=== PATIENT | male | born 1965 | race Two or more races ===

== ENCOUNTER 2018-02-21 09:04 | Inpatient (IN) | payer OTHER ==
[2018-02-21 09:36] VITALS: BMI 39.0
--- NOTE | 2018-02-21 09:42 | HP ---
CIWA Score Nausea/Vomitin Muscle Tremors: 2 Anxiety: 2 Agitation: 2 Paroxysmal Sweats: 1-Minimal Palms Moist Orientation: 0-Oriented Tacttile Disturbances: 1-Very Mild Itch/Numbness Auditory Disturbances: 1-Very Mild Visual Disturbances: 0-None Headache: 2-Mild CIWA-Ar Total Score: 13 - Admission Criteria OASAS Guidelines: Admission for Medically Managed Detox: Requires at least one of the followin. CIWA greater than 12 2. Seizures within the past 24 hours 3. Delirium tremens within the past 24 hours 4. Hallucinations within the past 24 hours 5. Acute intervention needed for co occurring medical disorder 6. Acute intervention needed for co occurring psychiatric disorder 7. Severe withdrawal that cannot be handled at a lower level of care (continued vomiting, continued diarrhea, abnormal vital signs) requiring intravenous medication and/or fluids 8. Patient presents the following: CIWA greater than 12 Admission Criteria Met: Admission criteria met Admission ROS [facility] - HPI Chief Complaint: i need help to stop drinking alcohol Allergies/Adverse Reactions: Allergies Allergy/AdvReac Type Severity Reaction Status Date / Time No Known Allergies Allergy Verified 02/21/18 09:55 History of Present Illness: this 52 years old male with alcohol dependence,seeking detox,had syncope seen at [facility],refer for detox, last detox 08/08/15 to 08/12/17 [facility] syncope alcohol related history of hypertension hepatitis c treated anxiety,depression,insomnia,ptsd longest period of sobriety 2 years - Ebola screening Have you traveled outside of the country in the last 21 days: No (N) Have you had contact with anyone from an Ebola affected area: No Have you been sick,other than usual withdrawal symptoms: No Do you have a fever: No - Review of Systems Constitutional: Loss of Appetite, Malaise, Night Sweats, Changes in sleep, Weakness EENT: reports: Nose Congestion Respiratory: reports: No Symptoms reported Cardiac: reports: No Symptoms Reported GI: reports: Nausea, Vomiting, Abdominal cramping : reports: No Symptoms Reported Musculoskeletal: reports: Back Pain, Muscle Pain Integumentary: reports: Dryness Neuro: reports: Headache, Tremors Endocrine: reports: No Symptoms Reported Hematology: reports: No Symptoms Reported Psychiatric: reports: No Sypmtoms Reported, Judgement Intact, Mood/Affect Appropiate, Orientated x3, Anxious, Depressed, other (ptsd) Patient History - Patient Medical History Hx Anemia: No Hx Asthma: No Hx Chronic Obstructive Pulmonary Disease (COPD): No Hx Cancer: No Hx Cardiac Disorders: No Hx Congestive Heart Failure: No Hx Hypertension: Yes (onmedication) Hx Hypercholesterolemia: No Hx Pacemaker: No HX Cerebrovascular Accident: No Hx Seizures: No Hx Dementia: No Hx Diabetes: No Hx Gastrointestinal Disorders: No Hx Liver Disease: No Hx Genitourinary Disorders: No Hx Sexually Transmitted Disorders: No Hx Renal Disease (ESRD): No Hx Thyroid Disease: No Hx Human Immunodeficiency Virus (HIV): No (2017 last negative) Hx Hepatitis C: Yes (recently treated, cleared virus) Hx Depression: No Hx Suicide Attempt: No Hx Bipolar Disorder: Yes (on zoloft ) Hx Schizophrenia: No Other Medical History: no suicidal,no homicidal - Patient Surgical History Past Surgical History: Yes Hx Neurologic Surgery: No Hx Cataract Extraction: No Hx Cardiac Surgery: No Hx Lung Surgery: No Hx Breast Surgery: No Hx Breast Biopsy: No Hx Abdominal Surgery: Yes (umbilical hernia 2006, rt inguinal hernia repairs 2012) Hx Appendectomy: No Hx Cholecystectomy: No Hx Genitourinary Surgery: No Hx Orthopedic Surgery: Yes (rt wrist tendon and vein repair in 1986) Hx Hysterectomy: No Other Surgical History: arthroscopic surgery left shoulder 2016 Anesthesia Reaction: No - PPD History Previous Implant?: Yes Documented Results: Positive w/proof Date: 06/30/15 Results: 0 mm PPD to be Administered?: Yes - Smoking Cessation Smoking history: Current every day smoker Have you smoked in the past 12 months: Yes Aproximately how many cigarettes per day: 7 Cigars Per Day: 0 Hx Chewing Tobacco Use: No Initiated information on smoking cessation: Yes 'Breaking Loose' booklet given: 02/21/18 - Substance & Tx. History Hx Alcohol Use: Yes Hx Substance Use: Yes Substance Use Type: Alcohol, Marijuana Hx Substance Use Treatment: Yes ([facility] 08/08/15to 08/13/15 completed) - Substances Abused Alcohol Route: Oral Frequency: Daily Amount used: 1 gallon of vodka Age of first use: 7 Date of Last Use: 02/20/18 Marijuana/Hashish Route: Smoking Frequency: 1-3 times last 30 days Amount used: 1 joint Age of first use: 10 Date of Last Use: 02/14/18 Family Disease History - Family Disease History Family Disease History: Diabetes: Mother (), Heart Disease: Mother Admission Physical Exam [facility] - Vital Signs Vital Signs: Vital Signs - 24 hr 02/21/18 09:34 Temperature 98.7 F Pulse Rate 78 Respiratory 18 Rate Blood Pressure 140/86 - Physical General Appearance: Yes: Moderate Distress, Irritable, Sweating, Anxious HEENTM: Yes: Normal ENT Inspection, DWAY[place], Pharynx Normal Respiratory: Yes: Lungs Clear, Normal Breath Sounds, No Respiratory Distress Neck: Yes: Within Normal Limits, Supple, Trachea in good position Breast: Yes: Within Normal Limits Cardiology: Yes: Within Normal Limits, Regular Rhythm, Regular Rate, S1, S2 Abdominal: Yes: Within Normal Limits, Normal Bowel Sounds, Non Tender, Flat, Soft, Surgical Scar Genitourinary: Yes: Within Normal Limits Back: Yes: Muscle Spasm Musculoskeletal: Yes: Back pain, Muscle Pain Extremities: Yes: Normal Range of Motion, Tremors, Other (scar inright wrist volar aspect) Neurological: Yes: clockmaker II-XII NML intact, Fully Oriented, Alert, Motor Strength 5/5 Integumentary: Yes: Dry Lymphatic: Yes: Within Normal Limits - Diagnostic (1) Alcohol dependence with uncomplicated withdrawal Current Visit: No Status: Acute (2) Cannabis dependence, uncomplicated Current Visit: No Status: Chronic (3) HTN (hypertension) Current Visit: No Status: Chronic Qualifiers: Hypertension type: essential hypertension Qualified Code(s): I10 - Essential (primary) hypertension (4) Nicotine dependence Current Visit: No Status: Chronic Qualifiers: Nicotine product type: cigarettes Substance use status: unspecified nicotine-induced disorder Qualified Code(s): F17.219 - Nicotine dependence, cigarettes, with unspecified nicotine-induced disorders (5) Obesity Current Visit: No Status: Chronic Qualifiers: Obesity type: due to excess calories (6) Syncope Current Visit: Yes Status: Acute (7) Insomnia secondary to depression with anxiety Current Visit: Yes Status: Acute (8) History of umbilical hernia repair Current Visit: Yes Status: Acute (9) Hx of right inguinal hernia repair Current Visit: Yes Status: Acute (10) History of repair of left rotator cuff Current Visit: Yes Status: Acute (11) Laceration of wrist, right, with tendon involvement Current Visit: Yes Status: Resolved Cleared for Admission [facility] - Detox or Rehab [facility] Level of Care: Medically Managed Detox Regimen/Protocol: Librium [facility] Breath Alcohol Content Breath Alcohol Content: 0.080 Urine Drug Screen - Results Drug Screen Negative: No Urine Drug Screen Results: THC-Marijuana
[2018-02-21] MEDS ORDERED: hydrOXYzine PAMOATE 50 MG CAPSULE (FP) PO PRN (10:03)
[2018-02-21] MEDS ORDERED: MAG HYDROX/AL HYDROX/SIMETH 30 ML UNIT-DOSE CUP PO PRN (10:03)
[2018-02-21] MEDS ORDERED: MAGNESIUM HYDROX 2400MG/30ML ORAL SUSPENSION 30 ML CUP PO PRN (10:03)
[2018-02-21] MEDS ORDERED: IBUPROFEN 400 MG TABLET (FP) PO PRN (10:03)
[2018-02-21] MEDS ORDERED: MENTHOL/PHENOL 1 EACH UD MM PRN (10:03)
[2018-02-21] MEDS ORDERED: MAGNESIUM CITRATE 300 ML BOTTLE PO PRN (10:03)
[2018-02-21] MEDS ORDERED: LOPERAMIDE HCL 2 MG CAPSULE PO PRN (10:03)
[2018-02-21] MEDS ORDERED: ONDANSETRON *ODT* 4 MG TABLET SL PRN (10:05)
[2018-02-21] MEDS: chlordiazePOXIDE HCL 25 MG CAPSULE PO SCH ×3 (11:16→22:45)
[2018-02-21] MEDS: HYDROCHLOROTHIAZIDE 12.5 MG CAPSULE (FP) PO SCH (11:16)
[2018-02-21] MEDS: NICOTINE 21 MG/24 HOURS TOPICAL PATCH TD SCH (11:16)
[2018-02-21] MEDS: ACETAMINOPHEN 325 MG TABLET (FP) PO PRN (11:18)
[2018-02-21] MEDS: MELATONIN 5 MG TABLETS PO PRN (22:45)
[2018-02-21] MEDS: THIAMINE HCL 100 MG TABLET (FP) PO SCH (22:45)
[2018-02-22 01:47] LABS: URINE APPEARANCE TURBID; URINE BILIRUBIN NEGATIVE (<2.0 mg/dL); URINE COLOR YELLOW; URINE GLUCOSE (UA) NEGATIVE (NEGATIVE); URINE KETONE 1+ (NEGATIVE); URINE LEUK ESTERASE NEGATIVE (NEGATIVE); URINE NITRITE NEGATIVE (NEGATIVE); URINE PROTEIN 1+ (NEGATIVE); URINE UROBILINOGEN NEGATIVE mg/dL (0.2-1.0)
[2018-02-22 02:20] LABS: URINE BACTERIA FEW /hpf (NONE SEEN); URINE MUCUS RARE
[2018-02-22] MEDS: chlordiazePOXIDE HCL 25 MG CAPSULE PO SCH ×4 (06:09→22:47)
[2018-02-22 10:09] LABS: HEMOGLOBIN 14.2 GM/dL (11.7-16.9); MCH 30.9 pg (25.7-33.7); MCHC 35.6 g/dl (32.0-35.9); MEAN PLT VOLUME 8.1 fl (7.5-11.1); PLATELET COUNT 240 K/MM3 (134-434); RBC 4.59 M/mm3 (4.00-5.60); RDW 16.3 % (11.9-15.9); WHITE BLOOD COUNT 5.9 K/mm3 (4.0-10.0)
[2018-02-22 10:14] LABS: ALBUMIN 3.3 g/dl (3.4-5.0); ALK PHOS 101 U/L (45-117); ANION GAP 9 MMOL/L (8-16); BILIRUBIN,TOTAL 0.4 mg/dL (0.2-1); BLOOD UREA NITROGEN 15 mg/dL (7-18); CALCIUM 7.9 mg/dL (8.5-10.1); CHLORIDE 101 mmol/L (98-107); CO2 28 mmol/L (21-32); GLUCOSE,RANDOM 140 mg/dL (74-106); POTASSIUM 3.6 mmol/L (3.5-5.1); SGOT/AST 19 U/L (15-37); SGPT/ALT 27 U/L (13-61); SODIUM 138 mmol/L (136-145); TOT PROT 6.3 g/dl (6.4-8.2)
[2018-02-22] MEDS: NICOTINE 21 MG/24 HOURS TOPICAL PATCH TD SCH (10:22)
[2018-02-22] MEDS: HYDROCHLOROTHIAZIDE 12.5 MG CAPSULE (FP) PO SCH (10:23)
[2018-02-22] MEDS: PRENATAL VITAMINS W/ FOLIC ACID TABLET (FP) PO SCH (10:23)
[2018-02-22] MEDS: IBUPROFEN 400 MG TABLET (FP) PO PRN (10:28)
[2018-02-22] MEDS: P-EPHED 60MG/TRIPROLIDI 2.5MG TABLET PO PRN (10:29)
[2018-02-22] MEDS: guaiFENesin/D-METHORPHAN HB 10 ML UNIT-DOSE CUPS PO PRN (10:30)
[2018-02-22] MEDS: LIDOCAINE 5% TOPICAL PATCH TP SCH (10:30)
--- NOTE | 2018-02-22 11:23 | PN ---
S CIWA - CIWA Score Nausea/Vomitin-No Nausea/No Vomiting Muscle Tremors: 4-Moderate,w/Arms Extend Anxiety: 3 Agitation: 4-Moderately Restless Paroxysmal Sweats: 3 Orientation: 0-Oriented Tacttile Disturbances: 0-None Auditory Disturbances: 0-None Visual Disturbances: 0-None Headache: 0-None Present CIWA-Ar Total Score: 14 BHS Progress Note (SOAP) Subjective: agitation sweats shakes interrupted sleep rib pain. Objective: 02/22/18 11:22 Vital Signs Temperature 98.2 F 02/22/18 09:12 Pulse Rate 67 02/22/18 09:12 Respiratory Rate 18 02/22/18 09:12 Blood Pressure 147/99 02/22/18 09:12 O2 Sat by Pulse Oximetry (%) Laboratory Tests 02/21/18 02/22/18 02/22/18 14:50 07:00 07:00 WBC 5.9 RBC 4.59 Hgb 14.2 Hct 40.0 MCV 87.0 MCH 30.9 D MCHC 35.6 RDW 16.3 H Plt Count 240 MPV 8.1 Sodium 138 Potassium 3.6 Chloride 101 Carbon Dioxide 28 Anion Gap 9 BUN 15 Creatinine 1.0 Creat Clearance w eGFR > 60 Random Glucose 140 H Calcium 7.9 L Total Bilirubin 0.4 AST 19 ALT 27 Alkaline Phosphatase 101 Total Protein 6.3 L Albumin 3.3 L Urine Color Yellow Urine Appearance Turbid Urine pH 5.0 Ur Specific [place] 1.021 Urine Protein 1+ H Urine Glucose (UA) Negative Urine Ketones 1+ H Urine Blood 1+ H Urine Nitrite Negative Urine Bilirubin Negative Urine Urobilinogen Negative Ur Leukocyte Esterase Negative Urine WBC (Auto) 26 Urine RBC (Auto) None Urine Bacteria Few Urine Mucus Rare aaox3 ambulating no acute distress Assessment: 02/22/18 11:23 withdrawal sx Plan: continue detox increase fluids motrin 800mg prn lidocaine patch ordered
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
[2018-02-22] MEDS: chlordiazePOXIDE HCL 25 MG CAPSULE PO PRN (15:51)
[2018-02-22] MEDS: THIAMINE HCL 100 MG TABLET (FP) PO SCH (22:46)
[2018-02-22] MEDS: LIDOCAINE PATCH REMOVAL MC SCH (22:47)
[2018-02-22] MEDS: MELATONIN 5 MG TABLETS PO PRN (22:48)
[2018-02-23] MEDS: chlordiazePOXIDE HCL 25 MG CAPSULE PO SCH (05:16)
[2018-02-23] MEDS: HYDROCHLOROTHIAZIDE 12.5 MG CAPSULE (FP) PO SCH (10:12)
[2018-02-23] MEDS: SERTRALINE HCL 50 MG TABLET (FP) PO SCH (10:12)
[2018-02-23] MEDS: PRENATAL VITAMINS W/ FOLIC ACID TABLET (FP) PO SCH (10:12)
[2018-02-23] MEDS: chlordiazePOXIDE 5 MG CAPSULE PO SCH ×3 (10:12→22:14)
[2018-02-23] MEDS: LIDOCAINE 5% TOPICAL PATCH TP SCH (10:13)
[2018-02-23] MEDS: NICOTINE 21 MG/24 HOURS TOPICAL PATCH TD SCH (10:14)
--- NOTE | 2018-02-23 11:14 | PN ---
[facility] CIWA - CIWA Score Nausea/Vomitin-No Nausea/No Vomiting Muscle Tremors: 3 Anxiety: 3 Agitation: 3 Paroxysmal Sweats: 3 Orientation: 0-Oriented Tacttile Disturbances: 0-None Auditory Disturbances: 0-None Visual Disturbances: 0-None Headache: 0-None Present CIWA-Ar Total Score: 12 S Progress Note (SOAP) Subjective: cough sweats chills at night Objective: 02/23/18 11:21 Vital Signs Temperature 97.5 F L 02/23/18 09:30 Pulse Rate 56 L 02/23/18 09:30 Respiratory Rate 16 02/23/18 09:30 Blood Pressure 145/75 02/23/18 09:30 O2 Sat by Pulse Oximetry (%) Laboratory Tests 02/21/18 02/22/18 02/22/18 14:50 07:00 07:00 WBC 5.9 RBC 4.59 Hgb 14.2 Hct 40.0 MCV 87.0 MCH 30.9 D MCHC 35.6 RDW 16.3 H Plt Count 240 MPV 8.1 Sodium 138 Potassium 3.6 Chloride 101 Carbon Dioxide 28 Anion Gap 9 BUN 15 Creatinine 1.0 Creat Clearance w eGFR > 60 Random Glucose 140 H Calcium 7.9 L Total Bilirubin 0.4 AST 19 ALT 27 Alkaline Phosphatase 101 Total Protein 6.3 L Albumin 3.3 L Urine Color Yellow Urine Appearance Turbid Urine pH 5.0 Ur Specific [place] 1.021 Urine Protein 1+ H Urine Glucose (UA) Negative Urine Ketones 1+ H Urine Blood 1+ H Urine Nitrite Negative Urine Bilirubin Negative Urine Urobilinogen Negative Ur Leukocyte Esterase Negative Urine WBC (Auto) 26 Urine RBC (Auto) None Urine Bacteria Few Urine Mucus Rare RPR Titer HIV 1&2 Antibody Screen HIV P24 Antigen 02/22/18 02/22/18 07:00 07:00 WBC RBC Hgb Hct MCV MCH MCHC RDW Plt Count MPV Sodium Potassium Chloride Carbon Dioxide Anion Gap BUN Creatinine Creat Clearance w eGFR Random Glucose Calcium Total Bilirubin AST ALT Alkaline Phosphatase Total Protein Albumin Urine Color Urine Appearance Urine pH Ur Specific [place] Urine Protein Urine Glucose (UA) Urine Ketones Urine Blood Urine Nitrite Urine Bilirubin Urine Urobilinogen Ur Leukocyte Esterase Urine WBC (Auto) Urine RBC (Auto) Urine Bacteria Urine Mucus RPR Titer Nonreactive HIV 1&2 Antibody Screen Negative HIV P24 Antigen Negative aaox3 ambulating no acute distress Assessment: 02/23/18 11:21 withdrawal sx Plan: continue detox increase fluids robitussin prn
[2018-02-23] MEDS: IBUPROFEN 400 MG TABLET (FP) PO PRN (14:53)
[2018-02-23] MEDS: chlordiazePOXIDE HCL 25 MG CAPSULE PO PRN (14:54)
[2018-02-23] MEDS: P-EPHED 60MG/TRIPROLIDI 2.5MG TABLET PO PRN (17:17)
[2018-02-23] MEDS: THIAMINE HCL 100 MG TABLET (FP) PO SCH (22:14)
[2018-02-23] MEDS: MELATONIN 5 MG TABLETS PO PRN (22:14)
[2018-02-23] MEDS: LIDOCAINE PATCH REMOVAL MC SCH (22:15)
[2018-02-23] MEDS: guaiFENesin/D-METHORPHAN HB 10 ML UNIT-DOSE CUPS PO PRN (22:16)
[2018-02-24] MEDS: chlordiazePOXIDE 5 MG CAPSULE PO SCH (05:25)
--- NOTE | 2018-02-24 09:28 | PN ---
[facility] Progress Note (SOAP) Subjective: feeling better long history of hypertension encourage weigh loss discuss negative consequences of alcohol misuse Objective: 02/24/18 09:31 Vital Signs Temperature 97.9 F 02/24/18 09:27 Pulse Rate 56 L 02/24/18 09:27 Respiratory Rate 16 02/24/18 09:27 Blood Pressure 150/84 02/24/18 09:27 O2 Sat by Pulse Oximetry (%) Laboratory Last Values WBC 5.9 K/mm3 (4.0-10.0) 02/22/18 07:00 RBC 4.59 M/mm3 (4.00-5.60) 02/22/18 07:00 Hgb 14.2 GM/dL (11.7-16.9) 02/22/18 07:00 Hct 40.0 % (35.4-49) 02/22/18 07:00 MCV 87.0 fl (80-96) 02/22/18 07:00 MCH 30.9 pg (25.7-33.7) D 02/22/18 07:00 MCHC 35.6 g/dl (32.0-35.9) 02/22/18 07:00 RDW 16.3 % (11.9-15.9) H 02/22/18 07:00 Plt Count 240 K/MM3 (134-434) 02/22/18 07:00 MPV 8.1 fl (7.5-11.1) 02/22/18 07:00 Sodium 138 mmol/L (136-145) 02/22/18 07:00 Potassium 3.6 mmol/L (3.5-5.1) 02/22/18 07:00 Chloride 101 mmol/L (98-107) 02/22/18 07:00 Carbon Dioxide 28 mmol/L (21-32) 02/22/18 07:00 Anion Gap 9 MMOL/L (8-16) 02/22/18 07:00 BUN 15 mg/dL (7-18) 02/22/18 07:00 Creatinine 1.0 mg/dL (0.55-1.3) 02/22/18 07:00 Creat Clearance w eGFR > 60 (>60) 02/22/18 07:00 Random Glucose 140 mg/dL (74-106) H 02/22/18 07:00 Calcium 7.9 mg/dL (8.5-10.1) L 02/22/18 07:00 Total Bilirubin 0.4 mg/dL (0.2-1) 02/22/18 07:00 AST 19 U/L (15-37) 02/22/18 07:00 ALT 27 U/L (13-61) 02/22/18 07:00 Alkaline Phosphatase 101 U/L (45-117) 02/22/18 07:00 Total Protein 6.3 g/dl (6.4-8.2) L 02/22/18 07:00 Albumin 3.3 g/dl (3.4-5.0) L 02/22/18 07:00 Urine Color Yellow 02/21/18 14:50 Urine Appearance Turbid 02/21/18 14:50 Urine pH 5.0 (5.0-8.0) 02/21/18 14:50 Ur Specific [place] 1.021 (1.010-1.035) 02/21/18 14:50 Urine Protein 1+ (NEGATIVE) H 02/21/18 14:50 Urine Glucose (UA) Negative (NEGATIVE) 02/21/18 14:50 Urine Ketones 1+ (NEGATIVE) H 02/21/18 14:50 Urine Blood 1+ (NEGATIVE) H 02/21/18 14:50 Urine Nitrite Negative (NEGATIVE) 02/21/18 14:50 Urine Bilirubin Negative (<2.0 mg/dL) 02/21/18 14:50 Urine Urobilinogen Negative mg/dL (0.2-1.0) 02/21/18 14:50 Ur Leukocyte Esterase Negative (NEGATIVE) 02/21/18 14:50 Urine WBC (Auto) 26 /hpf (3-5) 02/21/18 14:50 Urine RBC (Auto) None /hpf (0-3) 02/21/18 14:50 Urine Bacteria Few /hpf (NONE SEEN) 02/21/18 14:50 Urine Mucus Rare 02/21/18 14:50 RPR Titer Nonreactive (NONREACTIVE) 02/22/18 07:00 HIV 1&2 Antibody Screen Negative 02/22/18 07:00 HIV P24 Antigen Negative 02/22/18 07:00 lab noted low Ca++ Assessment: 02/24/18 09:33 mild withdrawal sx 02/24/18 09:33 hypocalcemia Plan: medically supervised detox oscal supplement
[2018-02-24] MEDS: PRENATAL VITAMINS W/ FOLIC ACID TABLET (FP) PO SCH (10:11)
[2018-02-24] MEDS: chlordiazePOXIDE HCL 10 MG CAPSULE PO SCH ×3 (10:11→22:25)
[2018-02-24] MEDS: HYDROCHLOROTHIAZIDE 12.5 MG CAPSULE (FP) PO SCH (10:12)
[2018-02-24] MEDS: NICOTINE 21 MG/24 HOURS TOPICAL PATCH TD SCH (10:12)
[2018-02-24] MEDS: SERTRALINE HCL 50 MG TABLET (FP) PO SCH (10:12)
[2018-02-24] MEDS: LIDOCAINE 5% TOPICAL PATCH TP SCH (10:12)
[2018-02-24] MEDS: CALCIUM 250MG/VIT-D 125 UNITS 1 COMBO TABLET PO SCH ×2 (10:12→22:25)
[2018-02-24] MEDS: guaiFENesin/D-METHORPHAN HB 10 ML UNIT-DOSE CUPS PO PRN (14:57)
[2018-02-24] MEDS: ACETAMINOPHEN 325 MG TABLET (FP) PO PRN (17:26)
[2018-02-24] MEDS: THIAMINE HCL 100 MG TABLET (FP) PO SCH (22:24)
[2018-02-24] MEDS: MELATONIN 5 MG TABLETS PO PRN (22:26)
[2018-02-24] MEDS: LIDOCAINE PATCH REMOVAL MC SCH (22:26)
[2018-02-25] MEDS: chlordiazePOXIDE HCL 10 MG CAPSULE PO SCH (05:46)
--- NOTE | 2018-02-25 08:31 | DS ---
[facility] Detox Discharge Summary Admission Date: 02/21/18 - Physical Exam Results Vital Signs: Vital Signs Temperature 98.2 F 02/25/18 06:00 Pulse Rate 53 L 02/25/18 06:00 Respiratory Rate 20 02/25/18 06:00 Blood Pressure 146/76 02/25/18 06:00 O2 Sat by Pulse Oximetry (%) - Treatment Hospital Course: Responded well, Discharged Condition Good - Medication Discharge Medications: Ambulatory Orders Sertraline HCl [Zoloft -] 150 mg PO DAILY 08/08/15 Hydrochlorothiazide [Hctz -] 25 mg PO DAILY #15 cap 02/24/18 - Diagnosis (1) Alcohol dependence with uncomplicated withdrawal Current Visit: Yes Status: Chronic (2) History of repair of left rotator cuff Current Visit: No Status: Chronic (3) History of umbilical hernia repair Current Visit: Yes Status: Acute (4) Insomnia secondary to depression with anxiety Current Visit: Yes Status: Acute (5) Marijuana dependence Current Visit: Yes Status: Chronic (6) Substance induced mood disorder Current Visit: Yes Status: Acute (7) Syncope Current Visit: Yes Status: Acute (8) PTSD (post-traumatic stress disorder) Current Visit: Yes Status: Suspected (9) Cocaine dependence, uncomplicated Current Visit: Yes Status: Chronic (10) Drug-induced mood disorder Current Visit: No Status: Acute (11) Opioid dependence with withdrawal Current Visit: Yes Status: Chronic (12) Anxiety Current Visit: No Status: Chronic (13) Cannabis dependence, uncomplicated Current Visit: Yes Status: Chronic (14) Depression Current Visit: No Status: Chronic (15) GERD (gastroesophageal reflux disease) Current Visit: No Status: Chronic Qualifiers: Esophagitis presence: without esophagitis Qualified Code(s): K21.9 - Gastro -esophageal reflux disease without esophagitis (16) HTN (hypertension) Current Visit: No Status: Chronic Qualifiers: Hypertension type: essential hypertension Qualified Code(s): I10 - Essential (primary) hypertension (17) Nicotine dependence Current Visit: Yes Status: Chronic Qualifiers: Nicotine product type: cigarettes Substance use status: unspecified nicotine-induced disorder Qualified Code(s): F17.219 - Nicotine dependence, cigarettes, with unspecified nicotine-induced disorders (18) Obesity Current Visit: No Status: Chronic Qualifiers: Obesity type: due to excess calories - AMA Did Patient Leave Against Medical Advice: No (referred to rehab and/or outpatient)
[2018-02-25 09:07] VITALS: BP 124/69; PULSE 73; TEMP 98.1
== END 2018-02-25 09:15 | disposition home or self-care (01) | DRG 773 ==
LOC: YASAS 09:04 → Y6N 09:54
PROVIDERS: ADMIT Neuromusculoskeletal Medicine & OMM; ATTEND Neuromusculoskeletal Medicine & OMM
PROC: HZ2ZZZZ Detoxification Services for Substance Abuse Treatment (ICD-10-PCS; principal; 2018-02-21)
DX: F11.23 Opioid dependence with withdrawal (principal); F10.230 Alcohol dependence with withdrawal, uncomplicated; F14.20 Cocaine dependence, uncomplicated; F12.20 Cannabis dependence, uncomplicated; F17.210 Nicotine dependence, cigarettes, uncomplicated; F51.05 Insomnia due to other mental disorder; F19.24 Other psychoactive substance dependence with psychoactive substance-induced mood disorder; F43.10 Post-traumatic stress disorder, unspecified; F41.9 Anxiety disorder, unspecified; F32.9 Major depressive disorder, single episode, unspecified; I10 Essential (primary) hypertension; K21.9 Gastro-esophageal reflux disease without esophagitis; E83.51 Hypocalcemia; E66.09 Other obesity due to excess calories; Z68.39 Body mass index [BMI] 39.0-39.9, adult
CPT/HCPCS: 36415; 80053; 81003; 81015; 85027; 86593; 87389; Q0162

== ENCOUNTER 2018-09-09 08:52 | Inpatient (IN) | payer OTHER ==
[2018-09-09 10:11] VITALS: BMI 31.4
--- NOTE | 2018-09-09 11:23 | HP ---
COWS - Scale Resting Pulse: 0= [place] 80 or Below Sweatin= Chills/Flushing Restless Observation: 1= Difficult to Sit Still Pupil Size: 1= Pupils >than Normal Bone or Joint Aches: 2= Severe Diffuse Aches Runny Nose/ Eye Tearin= Runny Nose/Eyes GI Upset > 30mins: 2= Nausea/Diarrhea Tremor Observation: 2= Slight Tremor Visible Yawning Observation: 1= 1-2x During Session Anxiety or Irritability: 2=Irritable/Anxious Goose Flesh Skin: 0=Smooth Skin COWS Score: 14 CIWA Score - Admission Criteria OASAS Guidelines: Admission for Medically Managed Detox: Requires at least one of the followin. CIWA greater than 12 2. Seizures within the past 24 hours 3. Delirium tremens within the past 24 hours 4. Hallucinations within the past 24 hours 5. Acute intervention needed for co occurring medical disorder 6. Acute intervention needed for co occurring psychiatric disorder 7. Severe withdrawal that cannot be handled at a lower level of care (continued vomiting, continued diarrhea, abnormal vital signs) requiring intravenous medication and/or fluids 8. Admission ROS S - HPI Chief Complaint: i need help to stop using heroin and marijuana Allergies/Adverse Reactions: Allergies Allergy/AdvReac Type Severity Reaction Status Date / Time No Known Allergies Allergy Verified 09/09/18 09:57 History of Present Illness: this 52 years old male with heroin and marijuana dependence,seeking detox, withdrawal symptom, last detox C 02/21/18 to 02/25/18 history of drug overdose ,in coma,s/p tracheostomy hypertension,hypercholesterolemia hepatitis c treated seen in [place] last night ambulation with walker longest sobriety 4 and half years anxiety,depression,ptsd asthma Exam Limitations: No Limitations - Ebola screening Have you traveled outside of the country in the last 21 days: No (N) Have you had contact with anyone from an Ebola affected area: No Do you have a fever: No - Review of Systems Constitutional: Chills, Loss of Appetite, Malaise, Night Sweats, Changes in sleep, Weakness EENT: reports: Tearing, Nose Congestion Respiratory: reports: No Symptoms reported, Other (asthma) GI: reports: Diarrhea, Nausea, Abdominal cramping : reports: No Symptoms Reported Musculoskeletal: reports: Muscle Pain Integumentary: reports: Dryness Neuro: reports: Headache, Tremors Endocrine: reports: No Symptoms Reported Hematology: reports: No Symptoms Reported Psychiatric: reports: No Sypmtoms Reported, Judgement Intact, Mood/Affect Appropiate, Orientated x3, other (ptsd,anxiety,depressin) Patient History - Patient Medical History Hx Anemia: No Hx Asthma: No Hx Chronic Obstructive Pulmonary Disease (COPD): No Hx Cancer: No Hx Cardiac Disorders: No Hx Congestive Heart Failure: No Hx Hypertension: Yes (on medication) Hx Hypercholesterolemia: No Hx Pacemaker: No HX Cerebrovascular Accident: No Hx Seizures: No Hx Dementia: No Hx Diabetes: No Hx Gastrointestinal Disorders: No Hx Liver Disease: No Hx Genitourinary Disorders: No Hx Sexually Transmitted Disorders: No Hx Renal Disease (ESRD): No Hx Thyroid Disease: No Hx Human Immunodeficiency Virus (HIV): No (2017 last negative) Hx Hepatitis C: Yes (recently treated, cleared virus) Hx Depression: No Hx Suicide Attempt: No Hx Bipolar Disorder: Yes (on zoloft ) Hx Schizophrenia: No Other Medical History: no suicidal,no homicidal - Patient Surgical History Past Surgical History: Yes Hx Neurologic Surgery: No Hx Cataract Extraction: No Hx Cardiac Surgery: No Hx Lung Surgery: No Hx Breast Surgery: No Hx Breast Biopsy: No Hx Abdominal Surgery: Yes (umbilical hernia 2006, rt inguinal hernia repairs 2012) Hx Appendectomy: No Hx Cholecystectomy: No Hx Genitourinary Surgery: No Hx Orthopedic Surgery: Yes (rt wrist tendon and vein repair in 1986) Hx Hysterectomy: No Other Surgical History: arthroscopic surgery left shoulder 2016 Anesthesia Reaction: No - PPD History Previous Implant?: Yes Documented Results: Negative w/o proof Implanted On Prior R Admission?: Yes Date: 06/30/15 Results: 0 mm PPD to be Administered?: Yes - Smoking Cessation Smoking history: Current every day smoker Have you smoked in the past 12 months: Yes Aproximately how many cigarettes per day: 7 Cigars Per Day: 0 Hx Chewing Tobacco Use: No Initiated information on smoking cessation: Yes 'Breaking Loose' booklet given: 09/09/18 - Substances abused Heroin Substance route: Injection Frequency: Daily Amount used: $150-250 15 to 25 bags Age of first use: 25 Date of last use: 09/08/18 Marijuana/Hashish Substance route: Smoking Frequency: Daily Amount used: $40 Age of first use: 10 Date of last use: 09/08/18 Family Disease History - Family Disease History Family Disease History: Diabetes: Mother (), Heart Disease: Mother Admission Physical Exam S - Vital Signs Vital Signs: Vital Signs - 24 hr 09/09/18 10:02 Temperature 98.1 F Pulse Rate 60 Respiratory 18 Rate Blood Pressure 130/78 - Physical General Appearance: Yes: Moderate Distress, Tremorous, Irritable, Sweating, Anxious HEENTM: Yes: Normal ENT Inspection, DWAYNE, Pharynx Normal Respiratory: Yes: Lungs Clear, Normal Breath Sounds, No Respiratory Distress Neck: Yes: Within Normal Limits, Supple, Trachea in good position, Other (scar post tracheostomy) Breast: Yes: Within Normal Limits Cardiology: Yes: Within Normal Limits, Regular Rhythm, Regular Rate, S1, S2 Abdominal: Yes: Within Normal Limits, Normal Bowel Sounds, Non Tender, Flat, Soft Genitourinary: Yes: Within Normal Limits Back: Yes: Within Normal Limits, Muscle Spasm Musculoskeletal: Yes: Back pain, Muscle Pain Extremities: Yes: Within Normal Limits, Normal Range of Motion, Tremors Neurological: Yes: Within Normal Limits, claims agent right of way II-XII NML intact, Fully Oriented, Alert, Motor Strength 5/5 Integumentary: Yes: Dry Lymphatic: Yes: Within Normal Limits - Diagnostic (1) Opioid dependence with withdrawal Current Visit: Yes Status: Acute (2) History of umbilical hernia repair Current Visit: No Status: Acute (3) Syncope Current Visit: No Status: Acute (4) Cannabis dependence, uncomplicated Current Visit: No Status: Chronic (5) HTN (hypertension) Current Visit: No Status: Chronic Qualifiers: Hypertension type: essential hypertension Qualified Code(s): I10 - Essential (primary) hypertension (6) History of repair of left rotator cuff Current Visit: No Status: Chronic (7) Marijuana dependence Current Visit: Yes Status: Chronic (8) Nicotine dependence Current Visit: Yes Status: Chronic Qualifiers: Nicotine product type: cigarettes Substance use status: unspecified nicotine-induced disorder Qualified Code(s): F17.219 - Nicotine dependence, cigarettes, with unspecified nicotine-induced disorders (9) PTSD (post-traumatic stress disorder) Current Visit: Yes Status: Chronic (10) History of drug overdose Current Visit: Yes Status: Acute (11) History of tracheostomy Current Visit: Yes Status: Acute (12) Walker as ambulation aid Current Visit: Yes Status: Acute Cleared for Admission [facility] - Detox or Rehab [facility] Level of Care: Medically Managed Detox Regimen/Protocol: Methadone Screened but not Admitted - Documentation of Visit Screened but not Admitted: No Breathalyzer - Breathalyzer Breathalyzer: 0 Urine Drug Screen - Test Device Lot number: [id number] Expiration date: 05/30/20 - Control Is test valid?: Yes - Results Drug screen NEGATIVE: No Urine drug screen results: THC-Marijuana, FEN-Fentanyl, MOP-Opiates Inpatient Rehab Admission - Rehab Decision to Admit Inpatient rehab admission?: No
[2018-09-09] MEDS ORDERED: cloNIDine HCL 0.1 MG TABLET PO PRN (11:37)
[2018-09-09] MEDS ORDERED: IBUPROFEN 400 MG TABLET (FP) PO PRN (11:43)
[2018-09-09] MEDS ORDERED: BISMUTH SUBSALICYLATE 262 MG/15 ML BTL PO PRN (11:43)
[2018-09-09] MEDS ORDERED: MAGNESIUM HYDROX 2400MG/30ML ORAL SUSPENSION 30 ML CUP PO PRN (11:43)
[2018-09-09] MEDS ORDERED: MAG HYDROX/AL HYDROX/SIMETH 30 ML UNIT-DOSE CUP PO PRN (11:43)
[2018-09-09] MEDS ORDERED: ACETAMINOPHEN 325 MG TABLET (FP) PO PRN ×2 (11:43)
[2018-09-09] MEDS ORDERED: METHOCARBAMOL 500 MG TABLET PO PRN (11:43)
[2018-09-09] MEDS ORDERED: MENTHOL/PHENOL 1 EACH UD MM PRN (11:43)
[2018-09-09] MEDS ORDERED: MAGNESIUM CITRATE 300 ML BOTTLE PO PRN (11:43)
[2018-09-09] MEDS ORDERED: NICOTINE POLACRILEX 2 MG GUM BUC PRN (11:43)
[2018-09-09] MEDS: NICOTINE 21 MG/24 HOURS TOPICAL PATCH TD SCH (12:51)
[2018-09-09] MEDS: diazePAM 5 MG TABLET PO PRN ×2 (12:58→22:03)
--- NOTE | 2018-09-09 13:07 | PN ---
[facility] Progress Note Note: 52 years old male admitted for opioid withdrawal c/o general body ache ambulating with walker has chronic back pain and legs muscle weakness lidocain patch to lower spin daily
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
[2018-09-09] MEDS ORDERED: METHADONE HCL 10 MG TABLET (FOR DETOX USE ONLY) PO ONE ×2 (14:00→23:00)
[2018-09-09 14:55] LABS: ALBUMIN 4.1 g/dl (3.4-5.0); BILIRUBIN,TOTAL 0.4 mg/dL (0.2-1); BLOOD UREA NITROGEN 19.4 mg/dL (7-18); CALCIUM 9.4 mg/dL (8.5-10.1); CREATININE 0.9 mg/dL (0.55-1.3); POTASSIUM 4.5 mmol/L (3.5-5.1); TOT PROT 7.4 g/dl (6.4-8.2)
[2018-09-09 15:16] LABS: HEMATOCRIT 36.6 % (35.4-49); HEMOGLOBIN 12.2 GM/dL (11.7-16.9); MCH 28.7 pg (25.7-33.7); MCHC 33.2 g/dl (32.0-35.9); MEAN CELL VOLUME 86.2 fl (80-96); MEAN PLT VOLUME 8.2 fl (7.5-11.1); PLATELET COUNT 324 K/MM3 (134-434); RBC 4.25 M/mm3 (4.00-5.60); RDW 15.3 % (11.9-15.9); WHITE BLOOD COUNT 8.1 K/mm3 (4.0-10.0)
[2018-09-09] MEDS: LIDOCAINE 5% TOPICAL PATCH TP SCH (15:16)
[2018-09-09 18:53] LABS: PH,URINE 5.5 (5.0-8.0); URINE APPEARANCE CLEAR; URINE BILIRUBIN NEGATIVE (NEGATIVE); URINE COLOR YELLOW; URINE GLUCOSE (UA) 1+ (NEGATIVE); URINE KETONE NEGATIVE (NEGATIVE); URINE LEUK ESTERASE NEGATIVE (NEGATIVE); URINE NITRITE NEGATIVE (NEGATIVE); URINE PROTEIN NEGATIVE (NEGATIVE); URINE UROBILINOGEN 0.2 mg/dL (0.2-1.0)
[2018-09-09] MEDS: THIAMINE HCL 100 MG TABLET (FP) PO SCH (22:03)
[2018-09-09] MEDS: MELATONIN 5 MG TABLETS PO PRN (22:15)
[2018-09-09] MEDS: LIDOCAINE PATCH REMOVAL MC SCH (23:11)
[2018-09-10] MEDS ORDERED: ALBUTEROL SO4 2.5/IPRATROPIUM 0.5 INH SOL 3 ML VIAL.NEB. NEB ONE ×2 (09:36→09:38)
[2018-09-10] MEDS ORDERED: METHADONE HCL 10 MG TABLET (FOR DETOX USE ONLY) PO ONE (10:00)
[2018-09-10] MEDS ORDERED: SERTRALINE HCL 50 MG TABLET (FP) PO SCH (10:00)
[2018-09-10] MEDS: HYDROCHLOROTHIAZIDE 25 MG TABLET (FP) PO SCH (10:06)
[2018-09-10] MEDS: PRENATAL VITAMINS W/ FOLIC ACID TABLET (FP) PO SCH (10:06)
[2018-09-10] MEDS: LIDOCAINE 5% TOPICAL PATCH TP SCH (10:06)
[2018-09-10] MEDS: NICOTINE 21 MG/24 HOURS TOPICAL PATCH TD SCH (10:08)
[2018-09-10] MEDS ORDERED: ALBUTEROL SO4 2.5/IPRATROPIUM 0.5 INH SOL 3 ML VIAL.NEB. NEB PRN (12:00)
--- NOTE | 2018-09-10 12:25 | PN ---
BHS COWS - Scale Resting Pulse: 0= [place] 80 or Below Sweatin= Chills/Flushing Restless Observation: 1= Difficult to Sit Still Pupil Size: 1= Pupils >than Normal Bone or Joint Aches: 2= Severe Diffuse Aches Runny Nose/ Eye Tearin= Runny Nose/Eyes GI Upset > 30mins: 2= Nausea/Diarrhea Tremor Observation of Outstretched Hands: 2= Slight Tremor Visible Yawning Observation: 1= 1-2x During Session Anxiety or Irritability: 2=Irritable/Anxious Goose Flesh Skin: 0=Smooth Skin COWS Score: 14 S Progress Note (SOAP) Subjective: alert,irritable,anxious,interrupted sleep,pain in the body and back Objective: 09/10/18 12:23 Vital Signs Temperature 96 F L 09/10/18 09:04 Pulse Rate 59 L 09/10/18 09:04 Respiratory Rate 20 09/10/18 09:04 Blood Pressure 159/80 09/10/18 09:04 O2 Sat by Pulse Oximetry (%) 09/10/18 12:24 Laboratory Last Values WBC 8.1 K/mm3 (4.0-10.0) 09/09/18 11:30 RBC 4.25 M/mm3 (4.00-5.60) 09/09/18 11:30 Hgb 12.2 GM/dL (11.7-16.9) 09/09/18 11:30 Hct 36.6 % (35.4-49) 09/09/18 11:30 MCV 86.2 fl (80-96) 09/09/18 11:30 MCH 28.7 pg (25.7-33.7) 09/09/18 11:30 MCHC 33.2 g/dl (32.0-35.9) 09/09/18 11:30 RDW 15.3 % (11.9-15.9) 09/09/18 11:30 Plt Count 324 K/MM3 (134-434) D 09/09/18 11:30 MPV 8.2 fl (7.5-11.1) 09/09/18 11:30 Sodium 138 mmol/L (136-145) 09/09/18 11:30 Potassium 4.5 mmol/L (3.5-5.1) 09/09/18 11:30 Chloride 101 mmol/L (98-107) 09/09/18 11:30 Carbon Dioxide 28 mmol/L (21-32) 09/09/18 11:30 Anion Gap 8 MMOL/L (8-16) 09/09/18 11:30 BUN 19.4 mg/dL (7-18) H 09/09/18 11:30 Creatinine 0.9 mg/dL (0.55-1.3) 09/09/18 11:30 Est GFR (CKD-EPI)AfAm 111.83 09/09/18 11:30 Est GFR (CKD-EPI)NonAf 96.49 09/09/18 11:30 Random Glucose 114 mg/dL (74-106) H 09/09/18 11:30 Calcium 9.4 mg/dL (8.5-10.1) 09/09/18 11:30 Total Bilirubin 0.4 mg/dL (0.2-1) 09/09/18 11:30 AST 13 U/L (15-37) L 09/09/18 11:30 ALT 16 U/L (13-61) 09/09/18 11:30 Alkaline Phosphatase 96 U/L (45-117) 09/09/18 11:30 Total Protein 7.4 g/dl (6.4-8.2) 09/09/18 11:30 Albumin 4.1 g/dl (3.4-5.0) 09/09/18 11:30 Urine Color Yellow 09/09/18 16:35 Urine Appearance Clear 09/09/18 16:35 Urine pH 5.5 (5.0-8.0) 09/09/18 16:35 Ur Specific [place] 1.022 (1.010-1.035) 09/09/18 16:35 Urine Protein Negative (NEGATIVE) 09/09/18 16:35 Urine Glucose (UA) 1+ (NEGATIVE) H 09/09/18 16:35 Urine Ketones Negative (NEGATIVE) 09/09/18 16:35 Urine Blood Negative (NEGATIVE) 09/09/18 16:35 Urine Nitrite Negative (NEGATIVE) 09/09/18 16:35 Urine Bilirubin Negative (NEGATIVE) 09/09/18 16:35 Urine Urobilinogen 0.2 mg/dL (0.2-1.0) 09/09/18 16:35 Ur Leukocyte Esterase Negative (NEGATIVE) 09/09/18 16:35 HIV 1&2 Antibody Screen Negative 09/09/18 11:30 HIV P24 Antigen Negative 09/09/18 11:30 Assessment: 09/10/18 12:24 withdrawal symptom Plan: continue detox,encourage oral fluid
[2018-09-10] MEDS: ALBUTEROL SO4 8 GM HFA INHALER IH PRN ×2 (13:38→20:23)
[2018-09-10] MEDS: diazePAM 5 MG TABLET PO PRN (15:06)
--- NOTE | 2018-09-10 17:55 | PN ---
[facility] Progress Note Note: Psychiatry Attending's note (follow-up) : [employer] called [facility]. At [phone]. For verification of medications. Not informative : mailbox full. No one picked up. In the meantime, sertraline is reduced to 100 mg po daily. Mr Morales remains visible, ambulatory and active. Sociable. Patient is in agreement with this plan of care. Stable mental status.
[2018-09-10] MEDS: MELATONIN 5 MG TABLETS PO PRN (22:16)
[2018-09-10] MEDS: THIAMINE HCL 100 MG TABLET (FP) PO SCH (22:16)
[2018-09-10] MEDS: LIDOCAINE PATCH REMOVAL MC SCH (22:16)
[2018-09-11] MEDS: diazePAM 5 MG TABLET PO PRN ×2 (06:55→21:59)
[2018-09-11] MEDS ORDERED: METHADONE HCL 10 MG TABLET (FOR DETOX USE ONLY) PO ONE (10:00)
[2018-09-11] MEDS: SERTRALINE HCL 50 MG TABLET (FP) PO SCH (10:32)
[2018-09-11] MEDS: NICOTINE 21 MG/24 HOURS TOPICAL PATCH TD SCH (10:32)
[2018-09-11] MEDS: PRENATAL VITAMINS W/ FOLIC ACID TABLET (FP) PO SCH (10:32)
[2018-09-11] MEDS: HYDROCHLOROTHIAZIDE 25 MG TABLET (FP) PO SCH (10:32)
[2018-09-11] MEDS: LIDOCAINE 5% TOPICAL PATCH TP SCH (10:33)
--- NOTE | 2018-09-11 14:51 | PN ---
BHS COWS - Scale Resting Pulse: 1= [place] 81-100 Sweatin= Chills/Flushing Restless Observation: 0= Sits Still Pupil Size: 0= Normal to Room Light Bone or Joint Aches: 1= Mild Discomfort Runny Nose/ Eye Tearin= Nasal Congestion GI Upset > 30mins: 1= Stomach Cramp Tremor Observation of Outstretched Hands: 0= None Yawning Observation: 0= None Anxiety or Irritability: 1=Feels Anxious/Irritable Goose Flesh Skin: 0=Smooth Skin COWS Score: 6 BHS Progress Note (SOAP) Subjective: pt states doing better with detox protocol, no complaints O: Vital Signs - 24 hr 09/10/18 09/10/18 09/11/18 18:26 21:40 00:30 Temperature 98.9 F 97.5 F L Pulse Rate 55 L 51 L Respiratory 18 16 16 Rate Blood Pressure 125/76 135/75 09/11/18 09/11/18 09/11/18 05:56 06:55 09:45 Temperature 97.8 F 98.9 F Pulse Rate 49 L 66 51 L Respiratory 18 20 Rate Blood Pressure 168/82 116/66 09/11/18 13:32 Temperature 97.2 F L Pulse Rate 55 L Respiratory 18 Rate Blood Pressure 149/83 Laboratory Tests 09/09/18 09/09/18 09/09/18 11:30 11:30 11:30 WBC 8.1 RBC 4.25 Hgb 12.2 Hct 36.6 MCV 86.2 MCH 28.7 MCHC 33.2 RDW 15.3 Plt Count 324 D MPV 8.2 Sodium 138 Potassium 4.5 Chloride 101 Carbon Dioxide 28 Anion Gap 8 BUN 19.4 H Creatinine 0.9 Est GFR (CKD-EPI)AfAm 111.83 Est GFR (CKD-EPI)NonAf 96.49 Random Glucose 114 H Calcium 9.4 Total Bilirubin 0.4 AST 13 L ALT 16 Alkaline Phosphatase 96 Total Protein 7.4 Albumin 4.1 Urine Color Urine Appearance Urine pH Ur Specific [place] Urine Protein Urine Glucose (UA) Urine Ketones Urine Blood Urine Nitrite Urine Bilirubin Urine Urobilinogen Ur Leukocyte Esterase RPR Titer Nonreactive HIV 1&2 Antibody Screen HIV P24 Antigen 09/09/18 09/09/18 11:30 16:35 WBC RBC Hgb Hct MCV MCH MCHC RDW Plt Count MPV Sodium Potassium Chloride Carbon Dioxide Anion Gap BUN Creatinine Est GFR (CKD-EPI)AfAm Est GFR (CKD-EPI)NonAf Random Glucose Calcium Total Bilirubin AST ALT Alkaline Phosphatase Total Protein Albumin Urine Color Yellow Urine Appearance Clear Urine pH 5.5 Ur Specific [place] 1.022 Urine Protein Negative Urine Glucose (UA) 1+ H Urine Ketones Negative Urine Blood Negative Urine Nitrite Negative Urine Bilirubin Negative Urine Urobilinogen 0.2 Ur Leukocyte Esterase Negative RPR Titer HIV 1&2 Antibody Screen Negative HIV P24 Antigen Negative variable BP a/p: continue detox protocol monitor BP
[2018-09-11] MEDS: hydrOXYzine PAMOATE 25 MG CAPSULE (FP) PO PRN (15:02)
[2018-09-11] MEDS: MELATONIN 5 MG TABLETS PO PRN (21:59)
[2018-09-11] MEDS: ALBUTEROL SO4 8 GM HFA INHALER IH PRN (21:59)
[2018-09-11] MEDS: THIAMINE HCL 100 MG TABLET (FP) PO SCH (21:59)
[2018-09-11] MEDS: LIDOCAINE PATCH REMOVAL MC SCH (22:01)
[2018-09-12] MEDS ORDERED: METHADONE HCL 10 MG TABLET (FOR DETOX USE ONLY) ONE (09:03)
[2018-09-12] MEDS ORDERED: METHADONE HCL 5 MG TABLET (FOR DETOX USE ONLY) ONE (09:03)
[2018-09-12] MEDS ORDERED: METHADONE (DETOX) 10 MG, METHADONE (DETOX) 5 MG PO ONE (10:00)
[2018-09-12] MEDS ORDERED: METHADONE HCL 10 MG TABLET (FOR DETOX USE ONLY) PO ONE (10:00)
[2018-09-12] MEDS: HYDROCHLOROTHIAZIDE 25 MG TABLET (FP) PO SCH (10:31)
[2018-09-12] MEDS: SERTRALINE HCL 50 MG TABLET (FP) PO SCH (10:31)
[2018-09-12] MEDS: LIDOCAINE 5% TOPICAL PATCH TP SCH (10:33)
[2018-09-12] MEDS: NICOTINE 21 MG/24 HOURS TOPICAL PATCH TD SCH (10:35)
[2018-09-12] MEDS: PRENATAL VITAMINS W/ FOLIC ACID TABLET (FP) PO SCH (10:35)
--- NOTE | 2018-09-12 13:52 | PN ---
BHS COWS - Scale Resting Pulse: 0= [place] 80 or Below Sweatin= Chills/Flushing Restless Observation: 1= Difficult to Sit Still Pupil Size: 0= Normal to Room Light Bone or Joint Aches: 0= None Runny Nose/ Eye Tearin= None GI Upset > 30mins: 0= None Tremor Observation of Outstretched Hands: 0= None Yawning Observation: 1= 1-2x During Session Anxiety or Irritability: 2=Irritable/Anxious Goose Flesh Skin: 3=Piloerection COWS Score: 8 BHS Progress Note (SOAP) Subjective: Anxious, Sweating. Objective: PATIENT A & O X 3. IN NO ACUTE DISTRESS. PATIENT'S SYSTOLIC BP NOTED TO BE ELEVATED ON LAST TWO READINGS. WILL CONTINUE TO MONITOR. 09/12/18 13:50 Vital Signs Temperature 97.5 F L 09/12/18 13:12 Pulse Rate 53 L 09/12/18 13:12 Respiratory Rate 20 09/12/18 13:12 Blood Pressure 154/88 09/12/18 13:12 O2 Sat by Pulse Oximetry (%) Laboratory Tests 09/09/18 09/09/18 09/09/18 11:30 11:30 11:30 WBC 8.1 RBC 4.25 Hgb 12.2 Hct 36.6 MCV 86.2 MCH 28.7 MCHC 33.2 RDW 15.3 Plt Count 324 D MPV 8.2 Sodium 138 Potassium 4.5 Chloride 101 Carbon Dioxide 28 Anion Gap 8 BUN 19.4 H Creatinine 0.9 Est GFR (CKD-EPI)AfAm 111.83 Est GFR (CKD-EPI)NonAf 96.49 Random Glucose 114 H Calcium 9.4 Total Bilirubin 0.4 AST 13 L ALT 16 Alkaline Phosphatase 96 Total Protein 7.4 Albumin 4.1 Urine Color Urine Appearance Urine pH Ur Specific [place] Urine Protein Urine Glucose (UA) Urine Ketones Urine Blood Urine Nitrite Urine Bilirubin Urine Urobilinogen Ur Leukocyte Esterase RPR Titer Nonreactive HIV 1&2 Antibody Screen HIV P24 Antigen 09/09/18 09/09/18 11:30 16:35 WBC RBC Hgb Hct MCV MCH MCHC RDW Plt Count MPV Sodium Potassium Chloride Carbon Dioxide Anion Gap BUN Creatinine Est GFR (CKD-EPI)AfAm Est GFR (CKD-EPI)NonAf Random Glucose Calcium Total Bilirubin AST ALT Alkaline Phosphatase Total Protein Albumin Urine Color Yellow Urine Appearance Clear Urine pH 5.5 Ur Specific [place] 1.022 Urine Protein Negative Urine Glucose (UA) 1+ H Urine Ketones Negative Urine Blood Negative Urine Nitrite Negative Urine Bilirubin Negative Urine Urobilinogen 0.2 Ur Leukocyte Esterase Negative RPR Titer HIV 1&2 Antibody Screen Negative HIV P24 Antigen Negative LABS NOTED. 09/12/18 13:50 Assessment: 09/12/18 13:51 WITHDRAWAL SYMPTOMS. Plan: CONTINUE DETOX.
[2018-09-12] MEDS: hydrOXYzine PAMOATE 25 MG CAPSULE (FP) PO PRN ×2 (15:13→21:41)
[2018-09-12] MEDS: ALBUTEROL SO4 8 GM HFA INHALER IH PRN ×2 (15:14→21:41)
[2018-09-12] MEDS: THIAMINE HCL 100 MG TABLET (FP) PO SCH (21:41)
[2018-09-12] MEDS: MELATONIN 5 MG TABLETS PO PRN (21:42)
[2018-09-12] MEDS: LIDOCAINE PATCH REMOVAL MC SCH (21:46)
[2018-09-13] MEDS ORDERED: METHADONE HCL 5 MG TABLET (FOR DETOX USE ONLY) PO ONE (06:00)
[2018-09-13] MEDS ORDERED: METHADONE HCL 10 MG TABLET (FOR DETOX USE ONLY) PO ONE (10:00)
[2018-09-13] MEDS: NICOTINE 21 MG/24 HOURS TOPICAL PATCH TD SCH (10:22)
[2018-09-13] MEDS: SERTRALINE HCL 50 MG TABLET (FP) PO SCH (10:22)
[2018-09-13] MEDS: HYDROCHLOROTHIAZIDE 25 MG TABLET (FP) PO SCH (10:22)
[2018-09-13] MEDS: PRENATAL VITAMINS W/ FOLIC ACID TABLET (FP) PO SCH (10:23)
[2018-09-13] MEDS: LIDOCAINE 5% TOPICAL PATCH TP SCH (10:23)
--- NOTE | 2018-09-13 13:50 | PN ---
BHS COWS - Scale Resting Pulse: 0= [place] 80 or Below Sweatin= No chills or Flushing Restless Observation: 1= Difficult to Sit Still Pupil Size: 0= Normal to Room Light Bone or Joint Aches: 0= None Runny Nose/ Eye Tearin= None GI Upset > 30mins: 0= None Tremor Observation of Outstretched Hands: 0= None Yawning Observation: 0= None Anxiety or Irritability: 2=Irritable/Anxious Goose Flesh Skin: 0=Smooth Skin COWS Score: 3 BHS Progress Note (SOAP) Subjective: Patient Reports Anxiety Over Aftercare Planning (Patient Intent on Going to Rehab for Aftercare, but uncertain at this time about Rehab Bed Availability). Aside from that, Patient Denies Current withdrawal / Detox Symptoms and Reports That He Feels Well Overall. Objective: PATIENT A & O X 3, OBSERVED AMBULATING ON UNIT UNASSISTED. IN NO ACUTE DISTRESS. 09/13/18 13:49 Vital Signs Temperature 97.5 F L 09/13/18 09:00 Pulse Rate 64 09/13/18 09:00 Respiratory Rate 20 09/13/18 09:00 Blood Pressure 126/68 09/13/18 09:00 O2 Sat by Pulse Oximetry (%) Laboratory Tests 09/09/18 09/09/18 09/09/18 11:30 11:30 11:30 WBC 8.1 RBC 4.25 Hgb 12.2 Hct 36.6 MCV 86.2 MCH 28.7 MCHC 33.2 RDW 15.3 Plt Count 324 D MPV 8.2 Sodium 138 Potassium 4.5 Chloride 101 Carbon Dioxide 28 Anion Gap 8 BUN 19.4 H Creatinine 0.9 Est GFR (CKD-EPI)AfAm 111.83 Est GFR (CKD-EPI)NonAf 96.49 Random Glucose 114 H Calcium 9.4 Total Bilirubin 0.4 AST 13 L ALT 16 Alkaline Phosphatase 96 Total Protein 7.4 Albumin 4.1 Urine Color Urine Appearance Urine pH Ur Specific [place] Urine Protein Urine Glucose (UA) Urine Ketones Urine Blood Urine Nitrite Urine Bilirubin Urine Urobilinogen Ur Leukocyte Esterase RPR Titer Nonreactive HIV 1&2 Antibody Screen HIV P24 Antigen 09/09/18 09/09/18 11:30 16:35 WBC RBC Hgb Hct MCV MCH MCHC RDW Plt Count MPV Sodium Potassium Chloride Carbon Dioxide Anion Gap BUN Creatinine Est GFR (CKD-EPI)AfAm Est GFR (CKD-EPI)NonAf Random Glucose Calcium Total Bilirubin AST ALT Alkaline Phosphatase Total Protein Albumin Urine Color Yellow Urine Appearance Clear Urine pH 5.5 Ur Specific [place] 1.022 Urine Protein Negative Urine Glucose (UA) 1+ H Urine Ketones Negative Urine Blood Negative Urine Nitrite Negative Urine Bilirubin Negative Urine Urobilinogen 0.2 Ur Leukocyte Esterase Negative RPR Titer HIV 1&2 Antibody Screen Negative HIV P24 Antigen Negative LABS NOTED. Assessment: 09/13/18 13:49 COMPLETION OF DETOX REGIMEN. Plan: SINCE PATIENT REPORTS THAT CURRENT WITHDRAWAL / DETOX SYMPTOMS ARE MINIMAL IN DEGREE AND THAT HE FEELS WELL OVERALL, AT PATIENTS REQUEST, HE WAS GRANTED AN EARLY DISCHARGE FROM DETOX UNIT TODAY SO THAT HE MAY PROCEED ON TO AFTERCARE PLAN - [facility] ([place], [place]).
[2018-09-13 13:51] VITALS: BP 145/80; PULSE 56; TEMP 97.4
--- NOTE | 2018-09-13 13:56 | DS ---
[facility] Detox Discharge Summary Admission Date: 09/09/18 Discharge Date: 09/13/18 - History Present History: Alcohol Dependence, Cannabis Dependence, Opioid Dependence Additional Comments: PATIENT GOING TO [facility] ([facility]) FOR AFTERCARE. PATIENT WAS DISCHARGED FROM DETOX UNIT TO BE TAKEN OVER TO REHAB UNIT IN STABLE MEDICAL CONDITION. Pertinent Past History: History Of Tracheostomy, HTN, Hypercholesterolemia, Asthma, Hep C (Treated), Ambulates With a Walker, Anxiety, Major Depressive Disorder, P.T.S.D., Bipolar Disorder, History Of Umbilical Hernia Repair, History Of Syncope, History Of Repeair Of left rotator Cuff, Nicotine Dependence. - Physical Exam Results Vital Signs: Vital Signs Temperature 97.4 F L 09/13/18 13:50 Pulse Rate 56 L 09/13/18 13:50 Respiratory Rate 18 09/13/18 13:50 Blood Pressure 145/80 09/13/18 13:50 O2 Sat by Pulse Oximetry (%) Pertinent Admission Physical Exam Findings: WITHDRAWAL SYMPTOMS. Laboratory Tests 09/09/18 09/09/18 09/09/18 11:30 11:30 11:30 WBC 8.1 RBC 4.25 Hgb 12.2 Hct 36.6 MCV 86.2 MCH 28.7 MCHC 33.2 RDW 15.3 Plt Count 324 D MPV 8.2 Sodium 138 Potassium 4.5 Chloride 101 Carbon Dioxide 28 Anion Gap 8 BUN 19.4 H Creatinine 0.9 Est GFR (CKD-EPI)AfAm 111.83 Est GFR (CKD-EPI)NonAf 96.49 Random Glucose 114 H Calcium 9.4 Total Bilirubin 0.4 AST 13 L ALT 16 Alkaline Phosphatase 96 Total Protein 7.4 Albumin 4.1 Urine Color Urine Appearance Urine pH Ur Specific [place] Urine Protein Urine Glucose (UA) Urine Ketones Urine Blood Urine Nitrite Urine Bilirubin Urine Urobilinogen Ur Leukocyte Esterase RPR Titer Nonreactive HIV 1&2 Antibody Screen HIV P24 Antigen 09/09/18 09/09/18 11:30 16:35 WBC RBC Hgb Hct MCV MCH MCHC RDW Plt Count MPV Sodium Potassium Chloride Carbon Dioxide Anion Gap BUN Creatinine Est GFR (CKD-EPI)AfAm Est GFR (CKD-EPI)NonAf Random Glucose Calcium Total Bilirubin AST ALT Alkaline Phosphatase Total Protein Albumin Urine Color Yellow Urine Appearance Clear Urine pH 5.5 Ur Specific [place] 1.022 Urine Protein Negative Urine Glucose (UA) 1+ H Urine Ketones Negative Urine Blood Negative Urine Nitrite Negative Urine Bilirubin Negative Urine Urobilinogen 0.2 Ur Leukocyte Esterase Negative RPR Titer HIV 1&2 Antibody Screen Negative HIV P24 Antigen Negative LABS NOTED. - Treatment Hospital Course: Detox Protocol Followed, Detoxed Safely, Responded well, Discharged Condition Good, Rehab Referral Accepted Patient has Accepted a Rehab Referral to: [facility] ([place], [place]). - Medication Discharge Medications: Ambulatory Orders Sertraline HCl [Zoloft -] 150 mg PO DAILY 08/08/15 Hydrochlorothiazide [Hctz -] 25 mg PO DAILY #15 cap 02/24/18 - Diagnosis (1) Alcohol dependence with uncomplicated withdrawal Current Visit: Yes Status: Acute (2) History of drug overdose Current Visit: Yes Status: Acute (3) History of tracheostomy Current Visit: Yes Status: Chronic (4) Opioid dependence with withdrawal Current Visit: Yes Status: Acute (5) Walker as ambulation aid Current Visit: Yes Status: Acute (6) MDD (major depressive disorder) Current Visit: Yes Status: Chronic Qualifiers: Major depression recurrence: unspecified whether recurrent Active/ Remission status: remission status unspecified Qualified Code(s): F32.9 - Major depressive disorder, single episode, unspecified (7) Nicotine dependence Current Visit: Yes Status: Chronic Qualifiers: Nicotine product type: cigarettes Substance use status: unspecified nicotine-induced disorder Qualified Code(s): F17.219 - Nicotine dependence, cigarettes, with unspecified nicotine-induced disorders (8) PTSD (post-traumatic stress disorder) Current Visit: Yes Status: Chronic (9) History of umbilical hernia repair Current Visit: No Status: Acute (10) Syncope Current Visit: No Status: Acute Qualifiers: Syncope type: unspecified Qualified Code(s): R55 - Syncope and collapse (11) Cannabis dependence, uncomplicated Current Visit: Yes Status: Chronic (12) HTN (hypertension) Current Visit: Yes Status: Chronic Qualifiers: Hypertension type: essential hypertension Qualified Code(s): I10 - Essential (primary) hypertension (13) History of repair of left rotator cuff Current Visit: Yes Status: Chronic (14) Substance induced mood disorder Current Visit: Yes Status: Chronic - AMA Did Patient Leave Against Medical Advice: No
[2018-09-14] MEDS ORDERED: METHADONE HCL 5 MG TABLET (FOR DETOX USE ONLY) PO ONE (06:00)
== END 2018-09-13 02:25 | disposition other institution (70) | DRG 773 ==
LOC: YASAS 08:52 → Y3N 11:46
PROVIDERS: ADMIT Surgery; ATTEND Surgery
PROC: HZ2ZZZZ Detoxification Services for Substance Abuse Treatment (ICD-10-PCS; principal; 2018-09-09)
DX: F11.23 Opioid dependence with withdrawal (principal); F10.230 Alcohol dependence with withdrawal, uncomplicated; F12.20 Cannabis dependence, uncomplicated; F17.210 Nicotine dependence, cigarettes, uncomplicated; F33.9 Major depressive disorder, recurrent, unspecified; F19.24 Other psychoactive substance dependence with psychoactive substance-induced mood disorder; F43.10 Post-traumatic stress disorder, unspecified; R55 Syncope and collapse; Z98.890 Other specified postprocedural states; Z91.89 Other specified personal risk factors, not elsewhere classified; Z99.89 Dependence on other enabling machines and devices
CPT/HCPCS: 36415; 80053; 81003; 85027; 86593; 87389; 94640; J0735

== ENCOUNTER 2018-09-13 14:11 | Inpatient (IN) | payer OTHER ==
--- NOTE | 2018-09-13 14:09 | HP ---
[facility] Rehab Assess/Revision - Admission History Admitted to Rehab from: [facility] Date of Admission to Rehab: 09/13/2018 - Vital signs Vital Signs: NOTED; STABLE. - Findings Detox History & Physical reviewed: Yes Concur with findings: Yes Comments/Additional Findings: PATIENT'S MEDICAL / MEDICATION HISTORY REVIEWED PRIOR TO DISCHARGE FROM DETOX UNIT. PATIENT WAS DISCHARGED FROM DETOX UNIT TO BE TAKEN OVER TO REHAB UNIT IN STABLE MEDICAL CONDITION. Inpatient Rehab Admission - Rehab Decision to Admit Inpatient rehab admission?: Yes - Initial Determination Are CD services needed?: Yes Free of communicable disease: Yes Not in need of hospitalization: Yes - Rehab Admission Criteria Previous failed treatment: Yes Poor recovery environment: Yes Comorbidities: Yes Lacks judgement: No Patient is meeting Inpatient Rehab admission criteria:: Yes
[~2018-09-13 14:11] MED LIST: LOPERAMIDE HCL 2 MG CAPSULE PO PRN; MAG HYDROX/AL HYDROX/SIMETH 30 ML UNIT-DOSE CUP PO PRN; MAGNESIUM CITRATE 300 ML BOTTLE PO PRN; MAGNESIUM HYDROX 2400MG/30ML ORAL SUSPENSION 30 ML CUP PO PRN; MENTHOL/PHENOL 1 EACH UD MM PRN; NICOTINE POLACRILEX 2 MG GUM BUC PRN; P-EPHED 60MG/TRIPROLIDI 2.5MG TABLET PO PRN
[2018-09-13] MEDS ORDERED: ALBUTEROL SO4 2.5/IPRATROPIUM 0.5 INH SOL 3 ML VIAL.NEB. NEB PRN (15:04)
[2018-09-13] MEDS: THIAMINE HCL 100 MG TABLET (FP) PO SCH (21:53)
[2018-09-13] MEDS: MELATONIN 5 MG TABLETS PO PRN (21:53)
[2018-09-14] MEDS: ALBUTEROL SO4 8 GM HFA INHALER IH PRN (10:29)
[2018-09-14] MEDS: PRENATAL VITAMINS W/ FOLIC ACID TABLET (FP) PO SCH (10:36)
[2018-09-14] MEDS: SERTRALINE HCL 50 MG TABLET (FP) PO SCH (10:36)
[2018-09-14] MEDS: NICOTINE 21 MG/24 HOURS TOPICAL PATCH TD SCH (10:36)
[2018-09-14] MEDS: HYDROCHLOROTHIAZIDE 12.5 MG CAPSULE (FP) PO SCH (10:36)
[2018-09-14] MEDS: ACETAMINOPHEN 325 MG TABLET (FP) PO PRN (14:36)
[2018-09-14] MEDS: MELATONIN 5 MG TABLETS PO PRN (22:17)
[2018-09-14] MEDS: THIAMINE HCL 100 MG TABLET (FP) PO SCH (22:17)
[2018-09-15] MEDS: SERTRALINE HCL 50 MG TABLET (FP) PO SCH (10:49)
[2018-09-15] MEDS: NICOTINE 21 MG/24 HOURS TOPICAL PATCH TD SCH (10:49)
[2018-09-15] MEDS: PRENATAL VITAMINS W/ FOLIC ACID TABLET (FP) PO SCH (10:49)
[2018-09-15] MEDS: HYDROCHLOROTHIAZIDE 12.5 MG CAPSULE (FP) PO SCH (10:49)
[2018-09-15] MEDS: ACETAMINOPHEN 325 MG TABLET (FP) PO PRN (10:50)
[2018-09-15] MEDS: MELATONIN 5 MG TABLETS PO PRN (22:03)
[2018-09-15] MEDS: THIAMINE HCL 100 MG TABLET (FP) PO SCH (22:03)
[2018-09-16] MEDS: HYDROCHLOROTHIAZIDE 12.5 MG CAPSULE (FP) PO SCH (11:01)
[2018-09-16] MEDS: PRENATAL VITAMINS W/ FOLIC ACID TABLET (FP) PO SCH (11:01)
[2018-09-16] MEDS: SERTRALINE HCL 50 MG TABLET (FP) PO SCH (11:01)
[2018-09-16] MEDS: NICOTINE 21 MG/24 HOURS TOPICAL PATCH TD SCH (11:01)
[2018-09-16] MEDS: ACETAMINOPHEN 325 MG TABLET (FP) PO PRN (11:02)
[2018-09-16] MEDS: guaiFENesin 200 MG/10 ML 10 ML UNIT-DOSE CUPS PO PRN (11:03)
--- NOTE | 2018-09-16 13:25 | PN ---
[facility] Progress Note Note: C/O BACK PAIN. REQUESTING PAIN PATCH. Vital Signs - 24 hr 09/16/18 09/16/18 09/16/18 00:30 03:30 07:08 Temperature 98.3 F Pulse Rate 66 Respiratory 18 18 16 Rate Blood Pressure 129/86 09/16/18 10:00 Temperature Pulse Rate 62 Respiratory Rate Blood Pressure 131/91 A;CHRONIC BACK PAIN PLAN:LIDOCAINE PATCH 5% APPLY DIRECTED
[2018-09-16] MEDS: LIDOCAINE 5% TOPICAL PATCH TP SCH (14:00)
[2018-09-16] MEDS: LIDOCAINE PATCH REMOVAL MC SCH (21:40)
[2018-09-16] MEDS: MELATONIN 5 MG TABLETS PO PRN (21:40)
[2018-09-16] MEDS: THIAMINE HCL 100 MG TABLET (FP) PO SCH (21:40)
[2018-09-17] MEDS: SERTRALINE HCL 50 MG TABLET (FP) PO SCH (10:21)
[2018-09-17] MEDS: LIDOCAINE 5% TOPICAL PATCH TP SCH (10:21)
[2018-09-17] MEDS: PRENATAL VITAMINS W/ FOLIC ACID TABLET (FP) PO SCH (10:21)
[2018-09-17] MEDS: NICOTINE 21 MG/24 HOURS TOPICAL PATCH TD SCH (10:21)
[2018-09-17] MEDS: HYDROCHLOROTHIAZIDE 12.5 MG CAPSULE (FP) PO SCH (10:21)
[2018-09-17] MEDS: ALBUTEROL SO4 8 GM HFA INHALER IH PRN (13:09)
[2018-09-17] MEDS: LIDOCAINE PATCH REMOVAL MC SCH (22:02)
[2018-09-17] MEDS: MELATONIN 5 MG TABLETS PO PRN (22:02)
[2018-09-17] MEDS: THIAMINE HCL 100 MG TABLET (FP) PO SCH (22:02)
[2018-09-18] MEDS: ACETAMINOPHEN 325 MG TABLET (FP) PO PRN (07:20)
[2018-09-18] MEDS: SERTRALINE HCL 50 MG TABLET (FP) PO SCH (10:38)
[2018-09-18] MEDS: PRENATAL VITAMINS W/ FOLIC ACID TABLET (FP) PO SCH (10:38)
[2018-09-18] MEDS: LIDOCAINE 5% TOPICAL PATCH TP SCH (10:38)
[2018-09-18] MEDS: NICOTINE 21 MG/24 HOURS TOPICAL PATCH TD SCH (10:38)
[2018-09-18] MEDS: HYDROCHLOROTHIAZIDE 12.5 MG CAPSULE (FP) PO SCH (10:38)
--- NOTE | 2018-09-18 12:59 | PN ---
S Progress Note Note: PT REPORTS PAIN UNDER HIS RIGHT NIPPLE AREA AND WHEN HE PRESSED ON IT, IT WAS HURTING 6/10 ON A PAIN SCALE. REPORTS I STRETCHED 3 DAYS AGO AND NOTICED THE PAIN RIGHT AFTER. REPORTS PAIN CONTINUED TILL TODAY BUT WAS GIVEN TYLENOL BY THE NURSE THE SECOND DAY WITH VERY LITTLE RELIEF. Vital Signs - 24 hr 09/18/18 09/18/18 09/18/18 00:30 03:30 06:48 Temperature 98.0 F Pulse Rate 77 Respiratory 18 18 18 Rate Blood Pressure 123/79 09/18/18 10:00 Temperature Pulse Rate 64 Respiratory Rate Blood Pressure 128/79 CARDIAC:S1 S2 RRR NO MM RIGHT CHEST-MILD POINT TENDERNESS AT UNDER BREAST LEVEL. LUNGS=:CTA,BILAT. A:MUSCLE STRAIN PLAN:ROBAXIN 500 MG PO TID X 2 DAYS THEN PRN FOR MUSCLE SPASM MOTRIN 400 MG PO Q6H PRN FOR PAIN D/W PT TO FOLLOW UP WITH STAFF IF CONTINUES. PT AGREES WITH POC.
[2018-09-18] MEDS ORDERED: IBUPROFEN 400 MG TABLET (FP) PO PRN ×2 (13:00→13:02)
[2018-09-18] MEDS: METHOCARBAMOL 500 MG TABLET PO SCH ×2 (15:56→21:38)
[2018-09-18] MEDS: LIDOCAINE PATCH REMOVAL MC SCH (21:38)
[2018-09-18] MEDS: THIAMINE HCL 100 MG TABLET (FP) PO SCH (21:38)
[2018-09-19] MEDS: METHOCARBAMOL 500 MG TABLET PO SCH ×3 (07:24→21:59)
[2018-09-19] MEDS: PRENATAL VITAMINS W/ FOLIC ACID TABLET (FP) PO SCH (10:37)
[2018-09-19] MEDS: LIDOCAINE 5% TOPICAL PATCH TP SCH (10:37)
[2018-09-19] MEDS: NICOTINE 21 MG/24 HOURS TOPICAL PATCH TD SCH (10:37)
[2018-09-19] MEDS: HYDROCHLOROTHIAZIDE 12.5 MG CAPSULE (FP) PO SCH (10:37)
[2018-09-19] MEDS: SERTRALINE HCL 50 MG TABLET (FP) PO SCH (10:37)
[2018-09-19] MEDS: guaiFENesin 200 MG/10 ML 10 ML UNIT-DOSE CUPS PO PRN (10:39)
[2018-09-19] MEDS: THIAMINE HCL 100 MG TABLET (FP) PO SCH (21:59)
[2018-09-19] MEDS: LIDOCAINE PATCH REMOVAL MC SCH (22:00)
[2018-09-19] MEDS: MELATONIN 5 MG TABLETS PO PRN (22:00)
[2018-09-20] MEDS: METHOCARBAMOL 500 MG TABLET PO SCH (07:13)
[2018-09-20] MEDS: HYDROCHLOROTHIAZIDE 12.5 MG CAPSULE (FP) PO SCH (10:50)
[2018-09-20] MEDS: PRENATAL VITAMINS W/ FOLIC ACID TABLET (FP) PO SCH (10:50)
[2018-09-20] MEDS: NICOTINE 21 MG/24 HOURS TOPICAL PATCH TD SCH (10:50)
[2018-09-20] MEDS: LIDOCAINE 5% TOPICAL PATCH TP SCH (10:51)
[2018-09-20] MEDS: SERTRALINE HCL 50 MG TABLET (FP) PO SCH (10:53)
[2018-09-20] MEDS: THIAMINE HCL 100 MG TABLET (FP) PO SCH (21:54)
[2018-09-20] MEDS: MELATONIN 5 MG TABLETS PO PRN (21:54)
[2018-09-20] MEDS: LIDOCAINE PATCH REMOVAL MC SCH (21:55)
[2018-09-21] MEDS: PRENATAL VITAMINS W/ FOLIC ACID TABLET (FP) PO SCH (10:22)
[2018-09-21] MEDS: HYDROCHLOROTHIAZIDE 12.5 MG CAPSULE (FP) PO SCH (10:22)
[2018-09-21] MEDS: NICOTINE 21 MG/24 HOURS TOPICAL PATCH TD SCH (10:23)
[2018-09-21] MEDS: LIDOCAINE 5% TOPICAL PATCH TP SCH (10:23)
[2018-09-21] MEDS: SERTRALINE HCL 50 MG TABLET (FP) PO SCH (10:24)
[2018-09-21] MEDS: THIAMINE HCL 100 MG TABLET (FP) PO SCH (21:40)
[2018-09-21] MEDS: LIDOCAINE PATCH REMOVAL MC SCH (21:40)
[2018-09-22] MEDS: HYDROCHLOROTHIAZIDE 12.5 MG CAPSULE (FP) PO SCH (10:30)
[2018-09-22] MEDS: PRENATAL VITAMINS W/ FOLIC ACID TABLET (FP) PO SCH (10:30)
[2018-09-22] MEDS: LIDOCAINE 5% TOPICAL PATCH TP SCH (10:30)
[2018-09-22] MEDS: NICOTINE 21 MG/24 HOURS TOPICAL PATCH TD SCH (10:30)
[2018-09-22] MEDS: SERTRALINE HCL 50 MG TABLET (FP) PO SCH (10:30)
[2018-09-22] MEDS: THIAMINE HCL 100 MG TABLET (FP) PO SCH (21:38)
[2018-09-22] MEDS: LIDOCAINE PATCH REMOVAL MC SCH (21:43)
[2018-09-23 06:36] VITALS: BP 155/90; PULSE 72; TEMP 98.3
[2018-09-23] MEDS: PRENATAL VITAMINS W/ FOLIC ACID TABLET (FP) PO SCH (10:22)
[2018-09-23] MEDS: NICOTINE 21 MG/24 HOURS TOPICAL PATCH TD SCH (10:22)
[2018-09-23] MEDS: HYDROCHLOROTHIAZIDE 12.5 MG CAPSULE (FP) PO SCH (10:22)
[2018-09-23] MEDS: SERTRALINE HCL 50 MG TABLET (FP) PO SCH (10:22)
[2018-09-23] MEDS: LIDOCAINE 5% TOPICAL PATCH TP SCH (10:22)
--- NOTE | 2018-09-23 12:58 | PN ---
[facility] Progress Note (SOAP) Subjective: PT WAS DISCHARGED TODAY AFTER REHAB TREATMENT. PT MET WITH HIS COUNSELOR AND HAS BEEN REFERRED TO [facility] [place], [place] FOR CD AFTERCARE. PT WILL FOLLOW UP WITH PRIMARY CARE AT [facility],[place], [place]. PT IS ALERT O X 3. DENIES S/H/I. PT REPORTS HE HAS OWN MEDS AT HOME. Objective: 09/23/18 12:55 Vital Signs - 24 hr 09/23/18 09/23/18 09/23/18 00:30 03:30 06:36 Temperature 98.3 F Pulse Rate 72 Respiratory 18 18 18 Rate Blood Pressure 155/90 Assessment: 09/23/18 12:56 NAD MEDICALLY STABLE Plan: [facility] AFTERCARE FOLLOW UP ON 09/25/18 AT 11:00 A.M [facility].
== END 2018-09-23 11:30 | disposition home or self-care (01) | DRG 772 ==
LOC: YASAS 14:11 → Y5N 14:12
PROVIDERS: ADMIT Neuromusculoskeletal Medicine & OMM; ATTEND Neuromusculoskeletal Medicine & OMM
PROC: HZ42ZZZ Group Counseling for Substance Abuse Treatment, Cognitive-Behavioral (ICD-10-PCS; principal; 2018-09-13)
DX: F11.20 Opioid dependence, uncomplicated (principal); F12.20 Cannabis dependence, uncomplicated; F17.219 Nicotine dependence, cigarettes, with unspecified nicotine-induced disorders; F43.10 Post-traumatic stress disorder, unspecified; I10 Essential (primary) hypertension; M54.5 Low back pain; G89.29 Other chronic pain; S29.011A Strain of muscle and tendon of front wall of thorax, initial encounter; X58.XXXA Exposure to other specified factors, initial encounter; Y93.89 Activity, other specified; Y92.239 Unspecified place in hospital as the place of occurrence of the external cause; R26.2 Difficulty in walking, not elsewhere classified; Z99.89 Dependence on other enabling machines and devices

== ENCOUNTER 2019-01-20 15:44 | Inpatient (IN) | payer OTHER ==
[2019-01-20 17:54] VITALS: BMI 30.7
--- NOTE | 2019-01-20 19:05 | HP ---
COWS - Scale Resting Pulse: 0= IN 80 or Below Sweatin= Chills/Flushing Restless Observation: 1= Difficult to Sit Still Pupil Size: 0= Normal to Room Light Bone or Joint Aches: 2= Severe Diffuse Aches Runny Nose/ Eye Tearin= Nasal Congestion GI Upset > 30mins: 2= Nausea/Diarrhea Tremor Observation: 2= Slight Tremor Visible Yawning Observation: 1= 1-2x During Session Anxiety or Irritability: 2=Irritable/Anxious Goose Flesh Skin: 0=Smooth Skin COWS Score: 12 CIWA Score Nausea/Vomitin Muscle Tremors: 3 Anxiety: 2 Agitation: 2 Paroxysmal Sweats: 1-Minimal Palms Moist Orientation: 0-Oriented Tacttile Disturbances: 0-None Auditory Disturbances: 0-None Visual Disturbances: 0-None Headache: 2-Mild CIWA-Ar Total Score: 13 - Admission Criteria OASAS Guidelines: Admission for Medically Managed Detox: Requires at least one of the followin. CIWA greater than 12 2. Seizures within the past 24 hours 3. Delirium tremens within the past 24 hours 4. Hallucinations within the past 24 hours 5. Acute intervention needed for co occurring medical disorder 6. Acute intervention needed for co occurring psychiatric disorder 7. Severe withdrawal that cannot be handled at a lower level of care (continued vomiting, continued diarrhea, abnormal vital signs) requiring intravenous medication and/or fluids 8. Admitting History and Physical - Smoking History Smoking history: Current every day smoker Have you smoked in the past 12 months: Yes Aproximately how many cigarettes per day: 10 - Alcohol/Substance Use Hx Alcohol Use: Yes Admission [facility] Chief Complaint: Detox from heroin and alcohol Allergies/Adverse Reactions: Allergies Allergy/AdvReac Type Severity Reaction Status Date / Time No Known Allergies Allergy Verified 01/20/19 17:48 History of Present Illness: 52 year old male with HTN, HLD, anxiety, depression, hepatitis C (treated) PTSD here for alcohol/heroin detox. Last here in August for both detox and rehab, finished 14 days of rehab and was clean for 1 month before relapse. Reports that his time in the penitentiary was the cause of his relapse. Longest sobriety 4.5 years. Alcohol: gallon of vodka every day, last drink this morning (14oz); has had withdrawal seizure, doesn't remember the last one; drinking all his life. Heroin: 4-5 bags per day, since 25 years old. IVDA in his R arm. 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 Loss EENT: reports: Blurred Vision Respiratory: reports: No Symptoms reported Cardiac: reports: Palpitations GI: reports: Nausea, Poor Appetite : reports: No Symptoms Reported Musculoskeletal: reports: Back Pain Integumentary: reports: No Symptoms Reported Neuro: reports: Headache, Tremors Endocrine: reports: No Symptoms Reported Hematology: reports: No Symptoms Reported Psychiatric: reports: Judgement Intact, Mood/Affect Appropiate, Orientated x3, Agitated, Anxious, Depressed Patient History - Patient Medical History Hx Anemia: No Hx Asthma: Yes Hx Chronic Obstructive Pulmonary Disease (COPD): No Hx Cancer: No Hx Cardiac Disorders: No Hx Congestive Heart Failure: No Hx Hypertension: Yes (on medication) Hx Hypercholesterolemia: No Hx Pacemaker: No HX Cerebrovascular Accident: No Hx Seizures: No Hx Dementia: No Hx Diabetes: No Hx Gastrointestinal Disorders: No Hx Liver Disease: No Hx Genitourinary Disorders: No Hx Sexually Transmitted Disorders: No Hx Renal Disease (ESRD): No Hx Thyroid Disease: No Hx Human Immunodeficiency Virus (HIV): No (2017 last negative) Hx Hepatitis C: Yes (recently treated, cleared virus) Hx Depression: Yes Hx Suicide Attempt: No Hx Bipolar Disorder: Yes (on zoloft ) Hx Schizophrenia: No - Patient Surgical History Past Surgical History: Yes Hx Neurologic Surgery: No Hx Cataract Extraction: No Hx Cardiac Surgery: No Hx Lung Surgery: No Hx Breast Surgery: No Hx Breast Biopsy: No Hx Abdominal Surgery: Yes (umbilical hernia 2006, rt inguinal hernia repairs 2012) Hx Appendectomy: No Hx Cholecystectomy: No Hx Genitourinary Surgery: No Hx Section: No Hx Orthopedic Surgery: Yes (rt wrist tendon and vein repair in 1986) Hx Hysterectomy: No Other Surgical History: arthroscopic surgery left shoulder 2016 Anesthesia Reaction: No - PPD History Date: 09/11/18 Results: 0 mm. - Smoking Cessation Smoking history: Current every day smoker Have you smoked in the past 12 months: Yes Aproximately how many cigarettes per day: 10 Cigars Per Day: 0 Hx Chewing Tobacco Use: No Initiated information on smoking cessation: Yes 'Breaking Loose' booklet given: 01/20/19 - Substances abused Heroin Substance route: Injection Frequency: Daily Amount used: $150-250 15 to 25 bags Age of first use: 25 Date of last use: 01/20/19 Marijuana/Hashish Substance route: Smoking Frequency: Daily Amount used: $40 Age of first use: 10 Date of last use: 12/21/18 Alcohol Substance route: Oral Frequency: Daily Amount used: Gallon of Vodka Age of first use: 7 Date of last use: 01/20/19 Admission Physical Exam [facility] - Vital Signs Vital Signs: Vital Signs - 24 hr 01/20/19 17:51 Temperature 97.7 F Pulse Rate 54 L Respiratory 16 Rate Blood Pressure 125/75 - Physical General Appearance: Yes: No Apparent Distress, Nourished, Appropriately Dressed HEENTM: Yes: EOMI, Normal ENT Inspection, Normocephalic, Normal Voice Respiratory: Yes: Chest Non-Tender, Lungs Clear, Normal Breath Sounds Breast: Yes: Within Normal Limits Cardiology: Yes: Regular Rhythm, Regular Rate Abdominal: Yes: Normal Bowel Sounds, Non Tender Neurological: Yes: adjuster electrical contacts II-XII NML intact, Fully Oriented, Alert, Motor Strength 5/5, Normal Mood/Affect, Normal Response Integumentary: Yes: Normal Color, Dry, Warm - Diagnostic (1) Alcohol dependence with uncomplicated withdrawal Current Visit: No Status: Acute (2) History of drug overdose Current Visit: No Status: Acute (3) History of umbilical hernia repair Current Visit: No Status: Acute (4) Muscle strain of chest wall Current Visit: No Status: Acute Qualifiers: Encounter type: initial encounter Qualified Code(s): S29.011A - Strain of muscle and tendon of front wall of thorax, initial encounter (5) Opioid dependence with withdrawal Current Visit: No Status: Acute Cleared for Admission S - Detox or Rehab [facility] Level of Care: Medically Supervised Breathalyzer - Breathalyzer Breathalyzer: 0.095 Urine Drug Screen - Test Device Lot number: [id number] Expiration date: 08/30/20 - Control Is test valid?: Yes - Results Drug screen NEGATIVE: Yes Urine drug screen results: THC-Marijuana, MOP-Opiates Inpatient Rehab Admission - Rehab Decision to Admit Inpatient rehab admission?: No
--- NOTE | 2019-01-20 19:22 | PN ---
Teaching Attending Note Name of Resident: Brody Dowd ATTENDING PHYSICIAN STATEMENT I saw and evaluated the patient. I reviewed the resident's note and discussed the case with the resident. I agree with the resident's findings and plan as documented. SUBJECTIVE: 53 yo old here for alcohol and heroin detox. Lives in a penitentiary. h/ o OD. Uses IV heroin. OBJECTIVE: Vital Signs - 24 hr 01/20/19 17:51 Temperature 97.7 F Pulse Rate 54 L Respiratory 16 Rate Blood Pressure 125/75 alert and oriented ASSESSMENT AND PLAN: AUD- detox protocol OUD- detox protocol
[2019-01-20] MEDS ORDERED: IBUPROFEN 400 MG TABLET (FP) PO PRN (19:24)
[2019-01-20] MEDS ORDERED: MAG HYDROX/AL HYDROX/SIMETH 30 ML UNIT-DOSE CUP PO PRN (19:24)
[2019-01-20] MEDS ORDERED: hydrOXYzine PAMOATE 25 MG CAPSULE (FP) PO PRN (19:24)
[2019-01-20] MEDS ORDERED: ACETAMINOPHEN 325 MG TABLET (FP) PO PRN ×2 (19:24)
[2019-01-20] MEDS ORDERED: MENTHOL/PHENOL 1 EACH UD MM PRN (19:24)
[2019-01-20] MEDS ORDERED: METHADONE HCL 10 MG TABLET (FOR DETOX USE ONLY) PO ONE (19:24)
[2019-01-20] MEDS ORDERED: cloNIDine HCL 0.1 MG TABLET PO PRN (19:24)
[2019-01-20] MEDS ORDERED: BISMUTH SUBSALICYLATE 524 MG/30 ML UD PO PRN (19:24)
[2019-01-20] MEDS ORDERED: MAGNESIUM CITRATE 300 ML BOTTLE PO PRN (19:24)
[2019-01-20] MEDS ORDERED: MAGNESIUM HYDROX 2400MG/30ML ORAL SUSPENSION 30 ML CUP PO PRN (19:24)
[2019-01-20] MEDS: THIAMINE HCL 100 MG TABLET (FP) PO SCH (22:03)
[2019-01-20] MEDS: chlordiazePOXIDE HCL 25 MG CAPSULE PO SCH (22:03)
[2019-01-20] MEDS: MELATONIN 5 MG TABLETS PO PRN (22:04)
[2019-01-21] MEDS: ALBUTEROL SO4 8 GM HFA INHALER IH SCH ×6 (01:37→22:10)
[2019-01-21] MEDS: chlordiazePOXIDE HCL 25 MG CAPSULE PO SCH ×4 (06:34→22:09)
[2019-01-21] MEDS ORDERED: METHADONE HCL 5 MG TABLET (FOR DETOX USE ONLY) ONE (09:53)
[2019-01-21] MEDS ORDERED: METHADONE HCL 10 MG TABLET (FOR DETOX USE ONLY) ONE (09:53)
[2019-01-21] MEDS ORDERED: METHADONE (DETOX) 20 MG, METHADONE (DETOX) 5 MG PO ONE (10:00)
[2019-01-21] MEDS: PRENATAL VITAMINS W/ FOLIC ACID TABLET (FP) PO SCH (10:07)
[2019-01-21] MEDS: HYDROCHLOROTHIAZIDE 12.5 MG CAPSULE (FP) PO SCH (10:08)
[2019-01-21] MEDS: METHOCARBAMOL 500 MG TABLET PO PRN (10:08)
[2019-01-21] MEDS: NICOTINE 21 MG/24 HOURS TOPICAL PATCH TD SCH (10:08)
[2019-01-21] MEDS: NICOTINE POLACRILEX 2 MG GUM BUC PRN (10:12)
[2019-01-21] MEDS ORDERED: cloNIDine HCL 0.1 MG TABLET PO PRN (10:30)
--- NOTE | 2019-01-21 10:32 | PN ---
[facility] CIWA - CIWA Score Nausea/Vomitin-Mild Nausea/No Vomiting Muscle Tremors: 3 Anxiety: 3 Agitation: 2 Paroxysmal Sweats: 1-Minimal Palms Moist Orientation: 0-Oriented Tacttile Disturbances: 1-Very Mild Itch/Numbness Auditory Disturbances: 1-Very Mild Visual Disturbances: 0-None Headache: 0-None Present CIWA-Ar Total Score: 12 BHS COWS - Scale Resting Pulse: 0= TN 80 or Below Sweatin= Chills/Flushing Restless Observation: 0= Sits Still Pupil Size: 1= Pupils >than Normal Bone or Joint Aches: 1= Mild Discomfort Runny Nose/ Eye Tearin= Nasal Congestion GI Upset > 30mins: 1= Stomach Cramp Tremor Observation of Outstretched Hands: 2= Slight Tremor Visible Yawning Observation: 1= 1-2x During Session Anxiety or Irritability: 2=Irritable/Anxious Goose Flesh Skin: 3=Piloerection COWS Score: 13 S Progress Note (SOAP) Subjective: doing well with librium detox regimen report more opiate withdrawal sx today supportive therapy clonidine 0.1 mg po q6h prn encourage robaxin ambulating with walker steady gait Objective: 01/21/19 10:34 Vital Signs Temperature 98.2 F 01/21/19 09:15 Pulse Rate 55 L 01/21/19 09:15 Respiratory Rate 16 01/21/19 09:15 Blood Pressure 172/96 H 01/21/19 09:15 O2 Sat by Pulse Oximetry (%) 01/21/19 10:35 lab pending clonidine 0.1 mg po q6h prn 01/21/19 10:36 denies headache no chest pain no shortness of breath Assessment: 01/21/19 10:35 alcohol and opiate withdrawal sx 01/21/19 10:35 discuss medication assisted treatment program Plan: 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
[2019-01-21] MEDS ORDERED: FLU VACCINE QUAD 60 MCG/0.5 ML (MDV 19-20) IM ONE (12:00)
[2019-01-21 12:01] LABS: HEMATOCRIT 42.6 % (35.4-49); HEMOGLOBIN 13.7 GM/dL (11.7-16.9); MCH 27.9 pg (25.7-33.7); MCHC 32.2 g/dl (32.0-35.9); MEAN CELL VOLUME 86.5 fl (80-96); MEAN PLT VOLUME 7.9 fl (7.5-11.1); PLATELET COUNT 369 K/MM3 (134-434); RBC 4.92 M/mm3 (4.00-5.60); RDW 16.2 % (11.9-15.9); WHITE BLOOD COUNT 8.1 K/mm3 (4.0-10.0)
[2019-01-21 12:28] LABS: ALBUMIN 3.7 g/dl (3.4-5.0); BILIRUBIN,TOTAL 0.5 mg/dL (0.2-1); CALCIUM 8.7 mg/dL (8.5-10.1); CREATININE 0.8 mg/dL (0.55-1.3); POTASSIUM 3.7 mmol/L (3.5-5.1); TOT PROT 6.9 g/dl (6.4-8.2)
[2019-01-21] MEDS: chlordiazePOXIDE HCL 25 MG CAPSULE PO PRN (14:32)
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
[2019-01-21] MEDS: THIAMINE HCL 100 MG TABLET (FP) PO SCH (22:10)
[2019-01-21] MEDS: MELATONIN 5 MG TABLETS PO PRN (22:11)
[2019-01-22] MEDS: METHOCARBAMOL 500 MG TABLET PO PRN ×2 (01:42→22:34)
[2019-01-22] MEDS: chlordiazePOXIDE HCL 25 MG CAPSULE PO PRN (01:42)
[2019-01-22] MEDS: ALBUTEROL SO4 8 GM HFA INHALER IH SCH ×4 (03:26→13:00)
[2019-01-22] MEDS: chlordiazePOXIDE HCL 25 MG CAPSULE PO SCH ×4 (05:44→22:32)
[2019-01-22] MEDS ORDERED: METHADONE HCL 10 MG TABLET (FOR DETOX USE ONLY) PO ONE (10:00)
[2019-01-22] MEDS: PRENATAL VITAMINS W/ FOLIC ACID TABLET (FP) PO SCH (10:24)
[2019-01-22] MEDS: SERTRALINE HCL 50 MG TABLET (FP) PO SCH (10:24)
[2019-01-22] MEDS: HYDROCHLOROTHIAZIDE 12.5 MG CAPSULE (FP) PO SCH (10:24)
[2019-01-22] MEDS: NICOTINE 21 MG/24 HOURS TOPICAL PATCH TD SCH (10:25)
--- NOTE | 2019-01-22 13:39 | PN ---
[facility] CIWA - CIWA Score Nausea/Vomitin-Mild Nausea/No Vomiting Muscle Tremors: 2 Anxiety: 2 Agitation: 2 Paroxysmal Sweats: No Perspiration Orientation: 0-Oriented Tacttile Disturbances: 1-Very Mild Itch/Numbness Auditory Disturbances: 0-None Visual Disturbances: 0-None Headache: 2-Mild CIWA-Ar Total Score: 10 BHS COWS - Scale Resting Pulse: 0= TN 80 or Below Sweatin= No chills or Flushing Restless Observation: 1= Difficult to Sit Still Pupil Size: 1= Pupils >than Normal Bone or Joint Aches: 1= Mild Discomfort Runny Nose/ Eye Tearin= Nasal Congestion GI Upset > 30mins: 1= Stomach Cramp Tremor Observation of Outstretched Hands: 1= Tremor [place], Not Seen Yawning Observation: 1= 1-2x During Session Anxiety or Irritability: 2=Irritable/Anxious Goose Flesh Skin: 0=Smooth Skin COWS Score: 9 S Progress Note (SOAP) Subjective: alert,irritable,anxious,interrupted sleep,pain in the body and back Objective: 01/22/19 13:37 Vital Signs Temperature 97.7 F 01/22/19 13:12 Pulse Rate 58 L 01/22/19 13:12 Respiratory Rate 18 01/22/19 13:12 Blood Pressure 128/73 01/22/19 13:12 O2 Sat by Pulse Oximetry (%) Laboratory Last Values WBC 8.1 K/mm3 (4.0-10.0) 01/21/19 08:40 RBC 4.92 M/mm3 (4.00-5.60) 01/21/19 08:40 Hgb 13.7 GM/dL (11.7-16.9) 01/21/19 08:40 Hct 42.6 % (35.4-49) D 01/21/19 08:40 MCV 86.5 fl (80-96) 01/21/19 08:40 MCH 27.9 pg (25.7-33.7) 01/21/19 08:40 MCHC 32.2 g/dl (32.0-35.9) 01/21/19 08:40 RDW 16.2 % (11.9-15.9) H 01/21/19 08:40 Plt Count 369 K/MM3 (134-434) 01/21/19 08:40 MPV 7.9 fl (7.5-11.1) 01/21/19 08:40 Sodium 137 mmol/L (136-145) 01/21/19 08:40 Potassium 3.7 mmol/L (3.5-5.1) 01/21/19 08:40 Chloride 100 mmol/L (98-107) 01/21/19 08:40 Carbon Dioxide 27 mmol/L (21-32) 01/21/19 08:40 Anion Gap 10 MMOL/L (8-16) 01/21/19 08:40 BUN 15.0 mg/dL (7-18) 01/21/19 08:40 Creatinine 0.8 mg/dL (0.55-1.3) 01/21/19 08:40 Est GFR (CKD-EPI)AfAm 116.56 01/21/19 08:40 Est GFR (CKD-EPI)NonAf 100.57 01/21/19 08:40 Random Glucose 60 mg/dL (74-106) L 01/21/19 08:40 Calcium 8.7 mg/dL (8.5-10.1) 01/21/19 08:40 Total Bilirubin 0.5 mg/dL (0.2-1) 01/21/19 08:40 AST 12 U/L (15-37) L 01/21/19 08:40 ALT 15 U/L (13-61) 01/21/19 08:40 Alkaline Phosphatase 92 U/L (45-117) 01/21/19 08:40 Total Protein 6.9 g/dl (6.4-8.2) 01/21/19 08:40 Albumin 3.7 g/dl (3.4-5.0) 01/21/19 08:40 RPR Titer Nonreactive (NONREACTIVE) 01/21/19 08:40 HIV 1&2 Ag/Ab, 4th Gen Non reactive (Non Reactive) 01/21/19 08:40 Assessment: 01/22/19 13:38 withdrawal symptom Plan: continue detox methadone and librium regimen,initial glucose is 60,will do fasting glucose in am
[2019-01-22] MEDS ORDERED: ALBUTEROL SO4 8 GM HFA INHALER IH PRN (14:24)
--- NOTE | 2019-01-22 14:25 | PN ---
[facility] Progress Note Note: change albuteral inhal to prn
[2019-01-22] MEDS: VITAMINS A AND D TOPICAL OINTMENT 60 GM TUBE TP SCH (22:32)
[2019-01-22] MEDS: THIAMINE HCL 100 MG TABLET (FP) PO SCH (22:32)
[2019-01-22] MEDS: MELATONIN 5 MG TABLETS PO PRN (22:33)
[2019-01-23] MEDS ORDERED: chlordiazePOXIDE HCL 10 MG CAPSULE PO PRN
[2019-01-23] MEDS: chlordiazePOXIDE HCL 10 MG CAPSULE PO SCH ×4 (04:55→22:00)
[2019-01-23] MEDS ORDERED: METHADONE HCL 5 MG TABLET (FOR DETOX USE ONLY) ONE (08:28)
[2019-01-23] MEDS ORDERED: METHADONE HCL 10 MG TABLET (FOR DETOX USE ONLY) ONE (08:28)
[2019-01-23] MEDS: PRENATAL VITAMINS W/ FOLIC ACID TABLET (FP) PO SCH (09:42)
[2019-01-23] MEDS: HYDROCHLOROTHIAZIDE 12.5 MG CAPSULE (FP) PO SCH (09:42)
[2019-01-23] MEDS: SERTRALINE HCL 50 MG TABLET (FP) PO SCH (09:42)
[2019-01-23] MEDS: NICOTINE 21 MG/24 HOURS TOPICAL PATCH TD SCH (09:42)
[2019-01-23] MEDS: NICOTINE POLACRILEX 2 MG GUM BUC PRN (09:42)
[2019-01-23] MEDS ORDERED: METHADONE (DETOX) 10 MG, METHADONE (DETOX) 5 MG PO ONE (10:00)
[2019-01-23] MEDS: VITAMINS A AND D TOPICAL OINTMENT 60 GM TUBE TP SCH ×2 (10:31→22:03)
--- NOTE | 2019-01-23 13:29 | PN ---
[facility] CIWA - CIWA Score Nausea/Vomitin-No Nausea/No Vomiting Muscle Tremors: 2 Anxiety: 2 Agitation: 2 Paroxysmal Sweats: 1-Minimal Palms Moist Orientation: 0-Oriented Tacttile Disturbances: 1-Very Mild Itch/Numbness Auditory Disturbances: 0-None Visual Disturbances: 0-None Headache: 0-None Present CIWA-Ar Total Score: 8 BHS COWS - Scale Resting Pulse: 0= IA 80 or Below Sweatin= Chills/Flushing Restless Observation: 0= Sits Still Pupil Size: 0= Normal to Room Light Bone or Joint Aches: 1= Mild Discomfort Runny Nose/ Eye Tearin= Nasal Congestion GI Upset > 30mins: 1= Stomach Cramp Tremor Observation of Outstretched Hands: 2= Slight Tremor Visible Yawning Observation: 1= 1-2x During Session Anxiety or Irritability: 1=Feels Anxious/Irritable Goose Flesh Skin: 0=Smooth Skin COWS Score: 8 S Progress Note (SOAP) Subjective: doing well with librium and methadone detox regimen report diarrhea x 1 imodium 4 mg po x 1 Objective: 01/23/19 13:40 Vital Signs Temperature 97.6 F 01/23/19 09:14 Pulse Rate 63 01/23/19 09:14 Respiratory Rate 18 01/23/19 09:14 Blood Pressure 123/73 01/23/19 09:14 O2 Sat by Pulse Oximetry (%) Laboratory Last Values WBC 8.1 K/mm3 (4.0-10.0) 01/21/19 08:40 RBC 4.92 M/mm3 (4.00-5.60) 01/21/19 08:40 Hgb 13.7 GM/dL (11.7-16.9) 01/21/19 08:40 Hct 42.6 % (35.4-49) D 01/21/19 08:40 MCV 86.5 fl (80-96) 01/21/19 08:40 MCH 27.9 pg (25.7-33.7) 01/21/19 08:40 MCHC 32.2 g/dl (32.0-35.9) 01/21/19 08:40 RDW 16.2 % (11.9-15.9) H 01/21/19 08:40 Plt Count 369 K/MM3 (134-434) 01/21/19 08:40 MPV 7.9 fl (7.5-11.1) 01/21/19 08:40 Sodium 137 mmol/L (136-145) 01/21/19 08:40 Potassium 3.7 mmol/L (3.5-5.1) 01/21/19 08:40 Chloride 100 mmol/L (98-107) 01/21/19 08:40 Carbon Dioxide 27 mmol/L (21-32) 01/21/19 08:40 Anion Gap 10 MMOL/L (8-16) 01/21/19 08:40 BUN 15.0 mg/dL (7-18) 01/21/19 08:40 Creatinine 0.8 mg/dL (0.55-1.3) 01/21/19 08:40 Est GFR (CKD-EPI)AfAm 116.56 01/21/19 08:40 Est GFR (CKD-EPI)NonAf 100.57 01/21/19 08:40 Random Glucose 60 mg/dL (74-106) L 01/21/19 08:40 Calcium 8.7 mg/dL (8.5-10.1) 01/21/19 08:40 Total Bilirubin 0.5 mg/dL (0.2-1) 01/21/19 08:40 AST 12 U/L (15-37) L 01/21/19 08:40 ALT 15 U/L (13-61) 01/21/19 08:40 Alkaline Phosphatase 92 U/L (45-117) 01/21/19 08:40 Total Protein 6.9 g/dl (6.4-8.2) 01/21/19 08:40 Albumin 3.7 g/dl (3.4-5.0) 01/21/19 08:40 RPR Titer Nonreactive (NONREACTIVE) 01/21/19 08:40 HIV 1&2 Ag/Ab, 4th Gen Non reactive (Non Reactive) 01/21/19 08:40 lab noted Assessment: 01/23/19 13:40 alcohol and opiate withdrawal sx Plan: continue librium and methadone detox regimen
[2019-01-23] MEDS ORDERED: LOPERAMIDE HCL 2 MG CAPSULE PO ONE (14:15)
[2019-01-23] MEDS: MELATONIN 5 MG TABLETS PO PRN (22:00)
[2019-01-23] MEDS: THIAMINE HCL 100 MG TABLET (FP) PO SCH (22:00)
[2019-01-24] MEDS: chlordiazePOXIDE HCL 10 MG CAPSULE PO SCH ×2 (06:02→18:00)
[2019-01-24] MEDS: HYDROCHLOROTHIAZIDE 12.5 MG CAPSULE (FP) PO SCH (09:53)
[2019-01-24] MEDS: PRENATAL VITAMINS W/ FOLIC ACID TABLET (FP) PO SCH (09:53)
[2019-01-24] MEDS: METHOCARBAMOL 500 MG TABLET PO PRN (09:53)
[2019-01-24] MEDS: SERTRALINE HCL 50 MG TABLET (FP) PO SCH (09:53)
[2019-01-24] MEDS: NICOTINE 21 MG/24 HOURS TOPICAL PATCH TD SCH (09:54)
[2019-01-24] MEDS: VITAMINS A AND D TOPICAL OINTMENT 60 GM TUBE TP SCH ×2 (09:54→21:58)
[2019-01-24] MEDS ORDERED: METHADONE HCL 10 MG TABLET (FOR DETOX USE ONLY) PO ONE (10:00)
[2019-01-24] MEDS: THIAMINE HCL 100 MG TABLET (FP) PO SCH (21:58)
[2019-01-24] MEDS: MELATONIN 5 MG TABLETS PO PRN (21:58)
[2019-01-25] MEDS ORDERED: chlordiazePOXIDE HCL 10 MG CAPSULE PO ONE (05:00)
[2019-01-25] MEDS ORDERED: METHADONE HCL 5 MG TABLET (FOR DETOX USE ONLY) PO ONE (06:00)
[2019-01-25 09:44] VITALS: BP 118/77; PULSE 65; TEMP 97
[2019-01-25] MEDS: NICOTINE 21 MG/24 HOURS TOPICAL PATCH TD SCH (10:17)
[2019-01-25] MEDS: PRENATAL VITAMINS W/ FOLIC ACID TABLET (FP) PO SCH (10:17)
[2019-01-25] MEDS: SERTRALINE HCL 50 MG TABLET (FP) PO SCH (10:17)
[2019-01-25] MEDS: HYDROCHLOROTHIAZIDE 12.5 MG CAPSULE (FP) PO SCH (10:17)
[2019-01-25] MEDS: VITAMINS A AND D TOPICAL OINTMENT 60 GM TUBE TP SCH (10:17)
--- NOTE | 2019-01-25 18:55 | DS ---
[facility] Detox Discharge Summary Admission Date: 01/20/19 Discharge Date: 01/25/19 - History Present History: Alcohol Dependence, Cannabis Dependence, Opioid Dependence Additional Comments: PATIENT WILL ATTEND LOCAL OUTPATIENT PROGRAM IN [place], [place]. PATIENT WILL ATTEND TO PERSONAL MATTERS IN THE INTERIM, THEN WILL CONSIDER REHAB ADMISSION IN THE NEXT FEW WEEKS. PATIENT DECLINED OFFER OF MEDICATION PRESCRIPTION FOR HOME MEDICATION AT TIME OF DISCHARGE FROM DETOX, NOTING THAT HE CURRENTLY HAS ADEQUATE SUPPLIES OF ALL PRESCRIBED HOME MEDICATIONS AT HOME. PATIENT WAS DISCHARGED FROM DETOX UNIT IN STABLE MEDICAL CONDITION. Pertinent Past History: HTN, Hyperlipidemia, Anxiety, Depression, Hep C (Treated), History Of P.T.S.D., History Of Asthma, History of Umbilical Hernia Repair, History Of Strain of Muscultature of Chest Wall. - Physical Exam Results Vital Signs: Vital Signs Temperature 97.0 F L 01/25/19 09:44 Pulse Rate 65 01/25/19 09:44 Respiratory Rate 18 01/25/19 09:44 Blood Pressure 118/77 01/25/19 09:44 O2 Sat by Pulse Oximetry (%) Pertinent Admission Physical Exam Findings: WITHDRAWAL SYMPTOMS. Laboratory Tests 01/21/19 01/21/19 01/21/19 08:40 08:40 08:40 WBC 8.1 RBC 4.92 Hgb 13.7 Hct 42.6 D MCV 86.5 MCH 27.9 MCHC 32.2 RDW 16.2 H Plt Count 369 MPV 7.9 Sodium 137 Potassium 3.7 Chloride 100 Carbon Dioxide 27 Anion Gap 10 BUN 15.0 Creatinine 0.8 Est GFR (CKD-EPI)AfAm 116.56 Est GFR (CKD-EPI)NonAf 100.57 Random Glucose 60 L Calcium 8.7 Total Bilirubin 0.5 AST 12 L ALT 15 Alkaline Phosphatase 92 Total Protein 6.9 Albumin 3.7 RPR Titer Nonreactive Hep C Ab Diagnostic HCV RNA PCR w/Genot Rflx Liver Fibrosis Interp HIV 1&2 Ag/Ab, 4th Gen 01/21/19 01/21/19 08:40 08:40 WBC RBC Hgb Hct MCV MCH MCHC RDW Plt Count MPV Sodium Potassium Chloride Carbon Dioxide Anion Gap BUN Creatinine Est GFR (CKD-EPI)AfAm Est GFR (CKD-EPI)NonAf Random Glucose Calcium Total Bilirubin AST ALT Alkaline Phosphatase Total Protein Albumin RPR Titer Hep C Ab Diagnostic >11.0 H HCV RNA PCR w/Genot Rflx Hcv not detected Liver Fibrosis Interp HIV 1&2 Ag/Ab, 4th Gen Non reactive LABS NOTED. - Treatment Hospital Course: Detox Protocol Followed, Detoxed Safely, Responded well, Discharged Condition Good Patient has Accepted a Rehab Referral to: PATIENT WILL ATTEND LOCAL OUTPATIENT SUPPORT PROGRAM. - Medication Discharge Medications: Ambulatory Orders Sertraline HCl [Zoloft -] 150 mg PO DAILY 08/08/15 Naloxone HCl [Narcan] 4 mg NS ASDIR PRN #1 spray 01/21/19 Albuterol Sulfate Inhaler - [Ventolin HFA Inhaler -] 2 inh PO Q4H #1 inhaler Hydrochlorothiazide [Hctz -] 25 mg PO DAILY #30 cap 01/22/19 Sertraline HCl 150 mg PO DAILY #30 tablet 01/22/19 Sertraline HCl [Zoloft -] 150 mg PO DAILY #30 tablet 01/22/19 - Diagnosis (1) Alcohol dependence with uncomplicated withdrawal Status: Acute (2) History of umbilical hernia repair Status: Acute (3) Muscle strain of chest wall Status: Acute Qualifiers: Encounter type: initial encounter Qualified Code(s): S29.011A - Strain of muscle and tendon of front wall of thorax, initial encounter (4) Opioid dependence with withdrawal Status: Acute (5) Cannabis dependence, uncomplicated Status: Chronic (6) HTN (hypertension) Status: Chronic Qualifiers: Hypertension type: essential hypertension Qualified Code(s): I10 - Essential (primary) hypertension (7) Nicotine dependence Status: Chronic Qualifiers: Nicotine product type: cigarettes Substance use status: unspecified nicotine-induced disorder Qualified Code(s): F17.219 - Nicotine dependence, cigarettes, with unspecified nicotine-induced disorders (8) Non-compliance Status: Chronic (9) PTSD (post-traumatic stress disorder) Status: Chronic (10) Substance induced mood disorder Status: Chronic - AMA Did Patient Leave Against Medical Advice: No
== END 2019-01-25 15:46 | disposition home or self-care (01) | DRG 773 ==
LOC: YASAS 15:44 → Y3N 20:20
PROVIDERS: ADMIT Allergy & Immunology; ATTEND Allergy & Immunology
PROC: HZ2ZZZZ Detoxification Services for Substance Abuse Treatment (ICD-10-PCS; principal; 2019-01-20)
DX: F11.23 Opioid dependence with withdrawal (principal); F10.230 Alcohol dependence with withdrawal, uncomplicated; F12.20 Cannabis dependence, uncomplicated; F17.210 Nicotine dependence, cigarettes, uncomplicated; F19.24 Other psychoactive substance dependence with psychoactive substance-induced mood disorder; F43.10 Post-traumatic stress disorder, unspecified; I10 Essential (primary) hypertension; E78.5 Hyperlipidemia, unspecified; J45.909 Unspecified asthma, uncomplicated; Z86.19 Personal history of other infectious and parasitic diseases; Z91.19 Patient's noncompliance with other medical treatment and regimen
CPT/HCPCS: 36415; 80053; 85027; 86593; 86803; 87389; J0735